=== PATIENT | male | born 1940 | race Caucasian/White ===

== ENCOUNTER 2017-07-22 01:51 | Inpatient (IN) | payer MEDICARE ==
[2017-07-22 02:51] LABS: ALT (SGPT) 21 U/L (8-55); AST (SGOT) 25 U/L (5-34); Albumin 3.7 g/dL (3.4-4.8); Alkaline Phosphatase 107 U/L (40-150); Anion Gap 14 mmol/L (10-20); BUN (Urea Nitrogen) 65 mg/dL (8.4-25.7); Bilirubin, Total 0.8 mg/dL (0.2-1.2); CK (CPK) 35 U/L (30-200); Calc. Creatinine Clearance 0 mL/min (70-130); Carbon Dioxide 22 mmol/L (23-31); Chloride 103 mmol/L (98-107); Estimated GFR-MDRD 16; Globulin 2.1 g/dL (2.4-3.5); Hemoglobin 8.5 g/dL (14.0-18.0); Lipase 12 U/L (8-78); Mean Corpuscular Hemoglobin 30.9 pg (27.0-31.0); Mean Corpuscular Volume 96.5 fl (80.0-94.0); Mean Platelet Volume 9.9 fL (7.4-10.4); Platelet Count 200 thou/uL (130-400); Potassium 5.4 mmol/L (3.5-5.1); Protein, Total 5.8 g/dL (5.8-8.1); RBC Distribution Width 21.1 % (11.5-14.5); Red Blood Cell (RBC) Count 2.75 mill/uL (4.70-6.10); Sodium 134 mmol/L (136-145); White Blood Cell (WBC) Count 7.7 thou/uL (4.8-10.8)
[2017-07-22 02:55] LABS: Glucose 59 mg/dL (83-110); PTT 58.7 SEC (22.9-36.1); Prothrombin Time 22.9 SEC (12.0-14.7); Troponin I 0.274 ng/mL (< 0.028)
[2017-07-22 03:17] LABS: Eosinophils 5 % (0-10); Lymphocytes 9 % (21-51); MDiff Complete? YES; Monocytes 8 % (0-10); Neutrophil 78 % (42-75)
[2017-07-22] MEDS ORDERED: Furosemide 40 MG/4 ML VIAL ONE (04:11)
[2017-07-22] MEDS ORDERED: Dextrose 50% Abboject 50 ML SYRINGE ONE ×2 (04:27→09:28)
[2017-07-22] MEDS ORDERED: Ondansetron HCl/PF 4 MG/2 ML Vial IVP PRN (05:47)
[2017-07-22] MEDS ORDERED: Ondansetron ODT 4 MG TAB SL PRN (05:47)
[2017-07-22] MEDS ORDERED: Furosemide 40 MG/4 ML VIAL SLOW IVP SCH (06:00)
[2017-07-22 06:51] LABS: Troponin I 0.257 ng/mL (< 0.028)
[2017-07-22] MEDS ORDERED: ALPRAZolam 0.25 MG TAB PO PRN (08:37)
[2017-07-22] MEDS ORDERED: Epoetin 40,000 UNITS/ML VIAL SC SCH (08:45)
[2017-07-22] MEDS ORDERED: Bisacodyl 5 MG TAB PO PRN (08:45)
[2017-07-22] MEDS ORDERED: Ondansetron ODT 4 MG TAB PO PRN (08:45)
[2017-07-22] MEDS ORDERED: Acetaminophen 650 MG Suppository PR PRN (08:45)
--- NOTE | 2017-07-22 08:49 | RAD ---
CHEST 1 VIEW: HISTORY: Chest pain. COMPARISON: Chest 1 view 06/22/16. FINDINGS: Heart size is enlarged. Multiple median sternotomy wires. Small left effusion. Mild pulmonary venous congestion. IMPRESSION: Small effusion and mild pulmonary venous congestion and cardiomegaly. POS: TPC
[2017-07-22 08:55] LABS: Troponin I 0.244 ng/mL (< 0.028)
[2017-07-22] MEDS ORDERED: FLU VACC TS2017-18 (>65YR) 0.5 ML SYRINGE IM ONE (09:00)
[2017-07-22] MEDS ORDERED: Aspirin 325 MG TAB PO SCH (09:00)
[2017-07-22] MEDS ORDERED: Non-Formulary Item 1 EACH (Potassium Chloride [Potassium Chloride] 20 MEQ) PO SCH (09:00)
[2017-07-22] MEDS ORDERED: Dextrose 5% in Water 1,000 ML IV PRN (09:45)
[2017-07-22] MEDS ORDERED: Dextrose 50% Abboject 50 ML SYRINGE SLOW IVP PRN (09:45)
[2017-07-22] MEDS ORDERED: Dextrose 50% Abboject 50 ML SYRINGE SLOW IVP SCH (09:45)
[2017-07-22] MEDS ORDERED: HumaLOG 300 UNITS/3 ML VIAL SC PRN (09:45)
--- NOTE | 2017-07-22 10:11 | HP ---
PRIMARY CARE PHYSICIAN: Out of town. CHIEF COMPLAINT: Shortness of breath, hypoxia and hypoglycemia. HISTORY OF PRESENT ILLNESS: This is a 77-year-old white male with a known history of mixed diastolic and systolic congestive heart failure. He is a little confused this morning and has a hard time giv ing a clear history. He does report worsening shortness of breath, unknown period of time and then r eportedly had severe worsening shortness of breath at home yesterday and was unable to get up or kalpana d or walk, felt very shaky and anxious as well. EMS was called and he was found to have a blood suga r in the 30s, he was given an amp of D50 and then transported to the hospital. He may have reported chest pain at some point to the EMS, he has not had any chest pain in the hospital. The patient was moved up to a room last night. This morning when I evaluated him he was having significant nausea wh ich he says he has about 3 times per week when he wakes up that resolves spontaneously after some dry heaves. He also is a little bit confused, he had a hard time getting his words out. He was also br eathless upon speaking, able to give 3-4 word sentences at a time on 2 liters of oxygen. The patient has not noticed any severe worsening of lower extremity edema and just a little bit recently, he sta ely he has been taking his medicines as prescribed. He currently follows with a side gluer, Dr. Jagdish eldridge in [place], he was previously seen by Dr. Obregon here. The patient denies any other severe sign ificant symptoms recently. States that he just felt confused upon waking this morning and he was not confused yesterday. PAST MEDICAL HISTORY: 1. Coronary artery disease with history of coronary artery bypass grafting. 2. Hypertension. 3. Dyslipidemia. 4. Mixed systolic and diastolic congestive heart failure. 5. Diabetes mellitus type 2, insulin-dependent. 6. History of myelofibrosis. 7. Chronic kidney disease stage 4. 8. Paroxysmal atrial fibrillation on Coumadin. 9. Morbid obesity. 10. Gastroesophageal reflux disease. 11. Benign enlargement of prostate. PAST SURGICAL HISTORY: CABG. FAMILY HISTORY: Diabetes and hypertension in multiple family members and father had congestive heart failure. SOCIAL HISTORY: The patient is and lives in the [place] area. He is a retired school teache r. Denies tobacco, alcohol, or illicit drug use. PSYCHIATRIC: Notable for anxiety and depression. ALLERGIES: Intolerant to STATINS. CURRENT MEDICATIONS: 1. Furosemide 40 mg twice a day. 2. Levemir 40 units at night. 3. Regular insulin sliding scale with meals. 4. Alprazolam 0.25 mg twice a day as needed for anxiety. 5. Aspirin 81 mg daily. 6. Vitamin D3 1000 units twice a day. 7. Cymbalta 60 mg daily. 8. Procrit 40,000 units every 7 days subcu. 9. Fish oil 1000 mg daily. 10. Hydralazine 100 mg 3 times a day. 11. Imdur ER 30 mg twice a day. 12. Labetalol 200 mg twice a day. 13. Mirtazapine 15 mg at night. 14. Potassium chloride 20 mEq twice a day. 15. Ranexa 500 mg twice a day. 16. Warfarin 7.5 mg daily. REVIEW OF SYSTEMS: CONSTITUTIONAL: No fevers, no chills. He has had worsening generalized weakness over the last day. EYES: No double vision or blurred vision. ENT: He has some chronic congestion and postnasal drip. No sore throat. CARDIOVASCULAR: No chest pain, no palpitations or racing heart. NEUROLOGIC: See HPI. He does have a cough in the morning when he has to cough up stuff that drains in his throat overnight, otherwise no significant cough, just dyspnea on exertion. He also has chron ic orthopnea that may have been worsened over the last 3 nights, again he is a poor historian. GASTROINTESTINAL: No abdominal pain. He has nausea as per HPI. No vomiting, no diarrhea or constip ation. GENITOURINARY: No dysuria or hematuria. MUSCULOSKELETAL: He does have chronic muscle aches in all his extremities and bilateral hip pain katherine t makes it hard for him ambulate long distances. SKIN: No rashes or other lesions noted. NEUROLOGIC: No numbness, tingling or focal weakness. PHYSICAL EXAMINATION: VITAL SIGNS: Blood pressure 108/61, temperature 97.5, pulse 62, respirations 24, O2 sat 98% on 2 lit ers, dropped to 94% on room air at rest. GENERAL: This is a well-developed, well-nourished white male in mild distress from nausea. HEENT: Pupils equal, round, and reactive to light. Extraocular movements intact. Oropharynx clear without lesions, erythema or exudate. NECK: Supple, no lymphadenopathy, no thyroid nodules or enlargement. He has moderate JVD. HEART: Irregularly irregular rhythm, no tachycardia, no significant murmurs. LUNGS: Mild bibasilar crackles, good air movement throughout. Mild increased work of breathing, jameson ecially when he tries to talk. ABDOMEN: Soft, nontender to palpation, normoactive bowel sounds, no hepatosplenomegaly or other mass es. EXTREMITIES: No clubbing or cyanosis. He has trace lower extremity edema. SKIN: No rashes or other significant lesions. NEUROLOGIC: He has intact strength and reflexes in all extremities and no facial droop. PSYCHIATRIC: The patient is alert. He is oriented to person, place, and situation, but he has some difficult time concentrating and remembering details from his admission. LABORATORY: CMP notable for a sodium of 134, potassium 5.4, carbon dioxide 22, BUN of 65, which is e levated compared to baseline and creatinine of 3.64, which is elevated above his typical around 3, gl ucose was 59 earlier this morning, now up to 150, the remainder of the complete metabolic panel was n ormal. Brain natriuretic peptide is 829, which is significant, it is double what it was last year du ring his exacerbation when he was admitted. CK-MB normal. Troponin is 0.274 initially with 2 unchan ged repeats. X-ray, I did review the x-ray done in the emergency room along with the radiologist's r eport, it does show small effusion, mild pulmonary venous congestion with cardiomegaly as well as venecia e median sternotomy wires from his CABG. ASSESSMENT AND PLAN: 1. Hypoglycemia, resolved, possibly secondary to poor p.o. intake with the patient's worsening short ness of breath and difficulty moving around. We will monitor closely and put patient back on his adalberto e Levemir, but hold his with meal insulins and will just cover him with a mild sliding scale should h e become hyperglycemic. 2. Exacerbation of systolic and diastolic congestive heart failure. The patient's brain natriuretic peptide is double what it was previously and he is having symptomatic orthopnea and dyspnea on exert ion. We will check his O2 sats with ambulation when we get him up with physical therapy later. We w ill switch him to IV Lasix and will have Cardiology come evaluate him, Dr. Bolton has been consulted. 3. Acute on chronic stage 4 kidney disease with mild hyperkalemia. We will hold potassium supplemen ts. We will have Dr. Martins, the patient's tufter hand, come and evaluate him. 4. Gastrointestinal prophylaxis. Put the patient on Pepcid twice a day. 5. Deep venous thrombosis prophylaxis. We will continue patient's Coumadin for his atrial fibrillat ion and will put on SCDs and IAN while in bed. 6. Atrial fibrillation, currently well controlled. Resume blood pressure and heart rate medications as well as his Coumadin. 7. CODE STATUS: I did discuss with the patient, he states he would like to be getting too aggressiv e if he is not going to have a good quality of life, but would like at least initial attempted CPR an d ventilatory support, so he is a FULL CODE. Should he be medically incapacitated, his aRdha Ram, would be his medical power of immigration attorney.
--- NOTE | 2017-07-22 11:45 | CON ---
DATE OF CONSULTATION: 07/22/2017 PRIMARY DEPARTMENT SALES MANAGER: Dr. Almaraz in [place]. HISTORY OF PRESENT ILLNESS: Mr. Liu is a very pleasant 77-year-old white gentleman who comes to [facility] for shortness of breath. He was at home and seemed a little confused and worsening short ness of breath than his baseline. EMS was called and they found him to have a blood sugar in the 30s . He was given an amp of D50 and taken to the hospital. He has not had any chest pain, it is mostly just shortness of breath with exertion and more recently at rest, that is why EMS was called. He forbes s been nauseated as well in the recent few days with dry heaves. Nothing that he ate that made him s ick. He has been followed by Dr. Martins in the past for renal dysfunction and has had a very hard time diuresing him. Currently, he is pain free. PAST MEDICAL HISTORY: 1. Coronary artery disease, status post bypass grafting. 2. Chronic angina. 3. Hypertension. 4. Hyperlipidemia. 5. Systolic heart failure, most recent echo shows just a mildly diminished LV function with very dif ficult windows to see a good endocardial definition to assess an accurate LV function. 6. Type 2 diabetes. 7. Myelofibrosis. 8. Chronic kidney disease stage 4. 9. Paroxysmal atrial fibrillation. 10. Chronic anticoagulation on Coumadin. 11. Morbid obesity. 12. Gastroesophageal reflux disease. 13. BPH. PAST SURGICAL HISTORY: 1. CABG. 2. Recent heart catheterization just 2 years ago that showed right coronary artery occluded with a r ight graft occluded, RIVAS to the LAD was patent with a jump graft to a diagonal, a graft to an OM whi ch was occluded, the graft is open and it jumps to a second OM branch which has at a 50-60% lesion be fore that branch and a very, very small [place] coronary. FAMILY HISTORY: Noncontributory. SOCIAL HISTORY: Lives in [place], retired school crossing guard. No alcohol, tobacco or drugs. ALLERGIES: STATIN DRUGS. OUTPATIENT MEDICATIONS: 1. Lasix 40 mg twice a day. 2. Levemir. 3. Regular insulin. 4. Alprazolam. 5. Aspirin 81 daily. 6. Vitamin D3. 7. Cymbalta. 8. Procrit. 9. Fish oil. 10. Hydralazine 100 mg t.i.d. 11. Imdur 30 mg daily. 12. Labetalol 200 mg b.i.d. 13. Mirtazapine. 14. Potassium chloride 20 mEq b.i.d. 15. Ranexa 500 mg b.i.d. 16. Warfarin. REVIEW OF SYSTEMS: Twelve point review of systems normal unless otherwise stated in the history of p resent illness. PHYSICAL EXAMINATION: VITAL SIGNS: Temperature 97.5, pulse 62, respiration rate 22, satting 94% on room air. Blood pressu re 108/61. GENERAL: Awake, alert, oriented x3, in no distress. HEENT: Normocephalic, atraumatic. NECK: Supple. LUNGS: Lungs have mild crackles at the bilateral bases. CARDIOVASCULAR: S1, S2, no S3, no murmurs. ABDOMEN: Soft, positive bowel sounds. EXTREMITIES: No edema. SKIN: The skin is warm and dry. LABORATORY WORK: Reviewed. Sodium 134, potassium is 5.4, elevated BUN 65, creatinine 3.6, GFR 16, g lucose was 59 on arrival, repeat 150 after sugar was given. Troponin I was 0.27, 0.25, 0.24. BNP wa s 829, albumin of 3.7. Coags: INR of 2.0. Hematology: Hemoglobin of 8.5, hematocrit 26, white cou nt 200. EKG was reviewed. He currently is in atrial fibrillation with rate control. Chest x-ray; small effusion with mild pulmonary edema. Cardiomegaly. ASSESSMENT AND PLAN: 1. Acute on chronic systolic and diastolic heart failure. 2. Acute on chronic kidney disease, stage 4. 3. Hypoglycemia, resolved. PLAN: 1. I agree with trying to get fluid out. He has not responded well to Lasix in the past for any diu resis. Dr. Martins already evaluated him and is planning on doing dialysis later today. I agree with adela prasad to get his fluid out for this. 2. We will get an echocardiogram to assess LV function now. 3. Further recommendations per results of echocardiogram Thank you for letting us participate in the care of your patient. We will follow.
--- NOTE | 2017-07-22 12:21 | CON ---
DATE OF CONSULTATION: 07/22/2017 NEPHROLOGY CONSULTATION REASON FOR CONSULTATION: Hyperkalemia and elevated creatinine. HISTORY OF PRESENT ILLNESS: This is a very pleasant 77-year-old gentleman who presented to the [facility] with increasing shortness of breath. The patient at this time denies any nausea, vomiting or ruth st pain, but is very weak and can give no further detailed history. PAST MEDICAL HISTORY: Significant for coronary artery disease, hypertension, CKD, but was admitted f or history of CABG. HOME MEDICATIONS: Reviewed. ALLERGIES: Reviewed. REVIEW OF SYSTEMS: Unobtainable, the patient is very somnolent. PHYSICAL EXAMINATION: GENERAL: The patient is somnolent. VITAL SIGNS: Afebrile, pulse 60, breathing at 16, blood pressure 108/61. HEAD/NECK: Normocephalic. Atraumatic. EYES: EOMI. No deformity. EARS: Clear. No ulcers. NOSE: Intact. No lesions. MOUTH: Clear. No discharge. THROAT: Clear. No exudate. LUNGS: Clear. No crackles. CARDIAC: S1, S2. No rub. ABDOMEN: Benign. BS+. GENITALIA/RECTUM: Esteves absent. BACK/EXTREMITIES: Edema 0+ Ulcer- NEUROLOGICAL: Very somnolent. SKIN: Rash- Bruise- LYMPHATICS: Edema- Ulcer- LABORATORY DATA: Hemoglobin 8.5, potassium is 5.4, creatinine 3.6. ASSESSMENT AND PLAN: 1. Acute kidney injury with progressive chronic kidney disease with altered mental status, uremia an d hyperkalemia. We will plan dialysis. 2. Hyperkalemia, plan dialysis. 3. Anemia. We will give transfusion and Epogen. 4. Medications based on glomerular filtration rate are appropriate. Risks versus benefits of dialys is were discussed and the patient agreed.
[2017-07-22] MEDS: Aspirin 81 mg Enteric Coated Tablet PO SCH (12:31)
[2017-07-22] MEDS: Docusate 100 MG CAP PO SCH ×2 (12:31→20:36)
[2017-07-22] MEDS: Famotidine 20 MG TAB PO SCH (12:32)
[2017-07-22] MEDS: Fish Oil 1,000 MG CAP PO SCH (12:32)
[2017-07-22] MEDS: Labetalol 100 MG TAB PO SCH ×2 (12:32→20:36)
[2017-07-22] MEDS: hydrALAZINE 25 MG TAB PO SCH ×3 (12:32→20:36)
[2017-07-22] MEDS: DULoxetine 60 MG CAP PO SCH (12:32)
--- NOTE | 2017-07-22 13:55 | ULT ---
ULTRASOUND BILATERAL UPPER EXTREMITY VENOUS MAPPING: DATE: 07/22/17. HISTORY: Stage IV chronic kidney disease in a 77-year-old male for arteriovenous dialysis access fistula plann ing surgery. FINDINGS: RIGHT: Brachial artery: 4.5 mm. Radial artery: 2 mm. Ulnar artery: 1 mm. CEPHALIC VEIN: Proximal arm 3.5 mm Mid arm 3 mm Distal arm 3 mm Antecubital 4 mm Proximal forearm 2 mm Mid forearm 2.5 mm Distal forearm 0.5 mm BASILIC VEIN: Proximal arm 4 mm Mid arm 4.5 mm Distal arm 3.5 mm Antecubital 2.5 mm Proximal forearm 0.5 mm Mid forearm 0.5 mm Distal forearm 0.5 mm LEFT: Brachial artery: 5 mm Radial artery: 1.5 mm Ulnar artery: 1.5 mm CEPHALIC VEIN: Proximal arm 3 mm Mid arm 1.5 mm Distal arm 1.5 mm Antecubital 1.5 mm Proximal forearm 3.5 mm Mid forearm 1.5 mm Distal forearm 1 mm BASILIC VEIN: Proximal arm 4 mm Mid arm 3.5 mm Distal arm 3.5 mm Antecubital 2 mm Proximal forearm 0.5 mm Mid forearm 0.5 mm Distal forearm 1 mm IMPRESSION: The bilateral basilic veins of the arms, and the cephalic vein of the right arm, are consistently gre ater than 3 mm in caliber. POS: SURESH
[2017-07-22 15:21] LABS: HBSAg Index 0.18 S/CO (0-0.99); Hep B Surf Ag Non-Reactive S/CO (NonReactive)
[2017-07-22] MEDS: Warfarin Sodium 5 MG TAB PO SCH (17:27)
[2017-07-22] MEDS: Warfarin Sodium 2 MG TAB PO SCH (17:27)
[2017-07-22] MEDS: Mirtazapine 15 MG Soltab PO SCH (20:37)
[2017-07-22] MEDS ORDERED: Insulin Detemir 100 UNITS/ML 40 UNITS in Pre-Filled Syringe 1 EACH SC SCH (21:00)
[2017-07-22] MEDS ORDERED: Insulin Detemir 100 UNITS/ML 20 UNITS in Admixture Fee 1 EACH SC SCH (21:00)
[2017-07-23 05:41] LABS: Anion Gap 14 mmol/L (10-20); BUN (Urea Nitrogen) 40 mg/dL (8.4-25.7); Calc. Creatinine Clearance 23 mL/min (70-130); Calcium 8.9 mg/dL (7.8-10.44); Carbon Dioxide 26 mmol/L (23-31); Chloride 101 mmol/L (98-107); Estimated GFR-MDRD 21; Glucose 60 mg/dL (83-110); Potassium 3.7 mmol/L (3.5-5.1); Sodium 137 mmol/L (136-145)
[2017-07-23 06:15] LABS: Band 3 % (5-11); Elliptocytes SLIGHT = 2-5 cells (100X) (0-1/hpf); Hemoglobin 8.5 g/dL (14.0-18.0); Lymphocytes 19 % (21-51); MDiff Complete? YES; Mean Corpuscular HGB CONC 32.1 g/dL (32.0-36.0); Mean Corpuscular Hemoglobin 31.1 pg (27.0-31.0); Mean Platelet Volume 9.9 fL (7.4-10.4); Monocytes 16 % (0-10); Neutrophil 61 % (42-75); Platelet Count 185 thou/uL (130-400); Polychromasia SLIGHT = 2-3 cells (100X) (0-2/hpf); RBC Distribution Width 21.2 % (11.5-14.5); Reactive Lymphocytes 1 % (0-10); Red Blood Cell (RBC) Count 2.74 mill/uL (4.70-6.10); White Blood Cell (WBC) Count 6.6 thou/uL (4.8-10.8)
--- NOTE | 2017-07-23 09:07 | CON ---
DATE OF CONSULTATION: 07/23/2017 REASON FOR CONSULTATION: Need for dialysis access. HISTORY: Mr. Liu is a 77-year-old man who presented to the hospital with shortness of breath, hyp oxia and hypoglycemia. He has chronic renal insufficiency and this has been steadily worsening. At this point, his database administration project manager feels that he is in fluid overload and he is also hyperkalemic, so place ment of a femoral dialysis catheter was required for immediate institution of dialysis. The patient is felt to need chronic dialysis so for long-term dialysis a tunneled hemodialysis catheter and fistu la were recommended as well. The patient has had 2 rounds of dialysis, which he has tolerated well a nd feels like he is breathing a little better. He is no longer short of breath. PAST MEDICAL HISTORY: Coronary artery disease status post bypass, hypertension, hyperlipidemia, mixe d systolic and diastolic congestive heart failure, diabetes, myelofibrosis, chronic kidney disease, n ow progressed to dialysis, paroxysmal atrial fibrillation, chronically anticoagulated. GERD, BPH and obesity. PAST SURGICAL HISTORY: Multi-vessel bypass. FAMILY HISTORY: Heart failure, diabetes and hypertension. SOCIAL HISTORY: He does not smoke, drink or use illicit drugs. He lives at home with his . ALLERGIES: STATIN MEDICATIONS. OUTPATIENT MEDICATIONS: Include Lasix, Levemir insulin, alprazolam, aspirin, vitamin D, Cymbalta, Pr ocrit, fish oil, hydralazine, Imdur, labetalol, mirtazapine, potassium, Ranexa and Coumadin with an I NR of 2 at admission. REVIEW OF SYSTEMS: Ten system review of systems is negative except per HPI. The patient is still sl ightly short of breath, but much better than at the time of his admission. He denies any chest pain. PHYSICAL EXAMINATION: VITAL SIGNS: The patient has been afebrile since his admission. Heart rate 66, respirations 19, 92% saturated on 1 liter nasal cannula, blood pressure 165/68. GENERAL: Reveals a pleasant gentleman in no acute distress. He does still get slightly short of mango ath with long conversation, but this is not noticeable during casual conversation. HEENT: Unremarkable. NECK: Supple, without lymphadenopathy or thyroid nodules. HEART: Regular in its rate and rhythm. He does have a slight systolic murmur. LUNGS: Clear to auscultation anteriorly with occasional scattered crackles. ABDOMEN: Soft, nontender, nondistended. EXTREMITIES: Warm and well perfused. He does have bilateral lower extremity edema which is moderate . A right femoral dialysis catheter is in place. He is right handed. He has a moderate sized cepha lic vein to palpation on the right, but this seems to become very small at the level of the wrist. Jenn castle has a good antecubital vein on the right and equal filling on Jhon's testing. On the left, he has equal filling on Jhon's testing and a moderate sized cephalic vein in the forearm and good size ant ecubital vein. He does have signs of previous IV at the antecubital location. NEUROLOGIC: No focal deficits. PSYCHIATRIC: Alert, oriented and appropriate. LABORATORY DATA: White count is normal at 6.6, hematocrit 26, which is chronically low, platelets 18 5. INR at admission was 2, BUN and creatinine are 40 and 3, potassium has come down to the normal ra nge. Glucose has ranged from 60 to 98. Vein mapping is pending. ASSESSMENT: End-stage renal failure on dialysis and tolerating this well. He will require a tunnele d hemodialysis catheter for outpatient placement for dialysis as well as a fistula for long-term acce ss. INR today is pending, but if it is not terribly high this should be able to be done with accepta ble bleeding risk. He would need to be fully anticoagulated during the fistula surgery anyway. The procedure of a tunneled hemodialysis catheter and fistula placement were discussed in detail with the patient. Inherent risks were also discussed. These include but are not limited to bleeding, infect ion, risks of anesthesia, hemothorax, pneumothorax, need for other procedures, need for transposition , failure of the fistula to develop or need for additional procedures to get the fistula to develop a nd arterial steal which can lead to ischemic damage to the hands. He understands and accepts these r isks and wishes to proceed. He does understand that his bleeding risk is slightly higher because of his chronic Coumadin usage.
[2017-07-23] MEDS ORDERED: Heparin 10,000 UNITS/ 10 ML VIAL ONE ×2 (10:00→17:21)
[2017-07-23 10:05] LABS: Hemoglobin 8.1 g/dL (14.0-18.0); Mean Corpuscular HGB CONC 32.6 g/dL (32.0-36.0); Mean Corpuscular Hemoglobin 31.6 pg (27.0-31.0); Mean Corpuscular Volume 97.1 fl (80.0-94.0); Mean Platelet Volume 9.3 fL (7.4-10.4); Platelet Count 158 thou/uL (130-400); RBC Distribution Width 21.2 % (11.5-14.5); Red Blood Cell (RBC) Count 2.56 mill/uL (4.70-6.10); White Blood Cell (WBC) Count 5.3 thou/uL (4.8-10.8)
--- NOTE | 2017-07-23 10:06 | PRG ---
DATE OF SERVICE: 07/23/2017 SUBJECTIVE: This is a 77-year-old gentleman being seen for end-stage renal disease. The patient den ies any nausea, vomiting or chest pain. PHYSICAL EXAMINATION: GENERAL: Patient is awake, alert. VITAL SIGNS: Afebrile, pulse 60, breathing 16, blood pressure 165/60. OBJECTIVE: See above. Awake, alert, in no acute distress. GENERAL APPEARANCE AND MENTAL STATUS: Fair. HEAD/NECK: Normocephalic. Atraumatic. EYES: EOMI. No deformity. EARS: Clear. No ulcers. NOSE: Intact. No lesions. MOUTH: Clear. No discharge. THROAT: Clear. No exudate. LUNGS: Clear. No crackles. CARDIAC: S1, S2. No rub. ABDOMEN: Benign. BS+. GENITALIA/RECTUM: Esteves absent. BACK/EXTREMITIES: Edema 0+ Ulcer- NEUROLOGICAL: Alert and motor intact. SKIN: Rash- Bruise- LYMPHATICS: Edema- Ulcer- LABORATORY: Hemoglobin 8.5, potassium 3.6. ASSESSMENT AND RECOMMENDATIONS: 1. Stage 6 chronic kidney disease. We will plan hemodialysis. 2. Hypertension, stable. 3. Anemia, stable. 4. Medications based on GFR are appropriate.
[2017-07-23 10:17] LABS: INR-International Normal Ratio 2.1; PTT 49.1 SEC (22.9-36.1); Prothrombin Time 24.7 SEC (12.0-14.7)
[2017-07-23 10:30] LABS: Anion Gap 8 mmol/L (10-20); BUN (Urea Nitrogen) 19 mg/dL (8.4-25.7); Calc. Creatinine Clearance 44 mL/min (70-130); Calcium 8.7 mg/dL (7.8-10.44); Carbon Dioxide 32 mmol/L (23-31); Chloride 102 mmol/L (98-107); Estimated GFR-MDRD 42; Glucose 92 mg/dL (83-110); Potassium 3.1 mmol/L (3.5-5.1); Sodium 139 mmol/L (136-145)
[2017-07-23 11:06] LABS: Band 4 % (5-11); Bite Cells SLIGHT = 2-5 cells (100X) (0-1/hpf); Eosinophils 2 % (0-10); Lymphocytes 14 % (21-51); MDiff Complete? YES; Monocytes 14 % (0-10); Neutrophil 66 % (42-75); Ovalocytes MODERATE= 6-15 cells (100X) (0-1/hpf); Polychromasia SLIGHT = 2-3 cells (100X) (0-2/hpf); Schistocytes SLIGHT = 2-5 cells (100X) (0-1/hpf); Tear Drops SLIGHT = 2-5 cells (100X) (0-1/hpf)
[2017-07-23] MEDS ORDERED: Heparin 1,000 UNITS/ML VIAL ONE (11:11)
[2017-07-23] MEDS ORDERED: Tuberculin PPD 0.1 ML VIAL I-DERMAL SCH (11:15)
[2017-07-23] MEDS: DULoxetine 60 MG CAP PO SCH (11:39)
[2017-07-23] MEDS: Labetalol 100 MG TAB PO SCH ×2 (11:40→21:53)
[2017-07-23] MEDS: Fish Oil 1,000 MG CAP PO SCH (11:40)
[2017-07-23] MEDS: hydrALAZINE 25 MG TAB PO SCH ×3 (11:41→21:52)
[2017-07-23] MEDS: Aspirin 81 mg Enteric Coated Tablet PO SCH (11:43)
[2017-07-23] MEDS: Famotidine 20 MG TAB PO SCH (11:43)
[2017-07-23] MEDS: Docusate 100 MG CAP PO SCH ×2 (11:51→21:53)
--- NOTE | 2017-07-23 12:13 | PDOC.PN ---
- Subjective Encounter Start Date: 07/23/17 Encounter Start Time: 12:12 Patient seen at bedside. No new complaints. - Objective Resuscitation Status: Resuscitation Status FULL:Full Resuscitation MAR Reviewed: Yes Vital Signs & Weight: Vital Signs (12 hours) Temp Pulse Resp BP Pulse Ox 07/23/17 11:41 66 07/23/17 11:40 66 07/23/17 02:45 98.4 F 66 19 165/68 H 92 L Weight Weight 173 lb 11.2 oz I&O: 07/22/17 07/23/17 07/24/17 06:59 06:59 06:59 Intake Total 490 Output Total 550 Balance -60 Result Diagrams: 07/23/17 09:49 07/23/17 09:49 Additional Labs: Accuchecks 07/23/17 07/23/17 07/23/17 09:35 08:00 05:44 POC Glucose 96 98 61 L 07/23/17 07/22/17 07/22/17 01:29 19:37 17:31 POC Glucose 92 86 89 07/22/17 07/22/17 07/22/17 16:45 10:22 09:28 POC Glucose 48 L* 94 35 L* 07/22/17 04:27 POC Glucose 49 L* Phys Exam - Physical Examination Constitutional: NAD Neck: no JVD scattered rales Cardiovascular: RRR Gastrointestinal: soft Musculoskeletal: pulses present Neurological: moves all 4 limbs Psychiatric: A&O x 3 Dx/Plan (1) ESRD (end stage renal disease) Code(s): N18.6 - END STAGE RENAL DISEASE Status: Acute (2) Hyperlipidemia Code(s): E78.5 - HYPERLIPIDEMIA, UNSPECIFIED Status: Chronic (3) Diabetes Code(s): E11.9 - TYPE 2 DIABETES MELLITUS WITHOUT COMPLICATIONS Status: Chronic (4) Hypertension Code(s): I10 - ESSENTIAL (PRIMARY) HYPERTENSION Status: Chronic - Plan cont current plan of care, PT/OT, health and social care teacher * Continue with current management. * For AV Fistula today * HD per nephrology *
[2017-07-23 12:43] LABS: HBSAg Index 0.21 S/CO (0-0.99); Hep B Core Total Ab Non-Reactive (NonReactive); Hep B Core Total Index 0.02 S/CO (0-0.79); Hep B Surf AB Non-Reactive (NonReactive); Hep B Surf Ag Non-Reactive S/CO (NonReactive); Hep C IgG Ab Non-Reactive (NonReactive); Hep C Index 0.07 S/CO (0-0.79)
--- NOTE | 2017-07-23 13:37 | PDOC.CTH ---
Cardiology Progress Note - Subjective He is doing well. he has had dialysis twice now and tolerated it well. SOB is still there but slightly improved. - Objective Vital Signs Temp Pulse Resp BP Pulse Ox 07/23/17 11:41 66 07/23/17 11:40 66 07/23/17 02:45 98.4 F 66 19 165/68 H 92 L Weight 173 lb 11.2 oz 07/22/17 07/23/17 07/24/17 06:59 06:59 06:59 Intake Total 490 Output Total 550 Balance -60 - Physical Examination General/Neuro: alert & oriented x3, NAD Neck: no JVD present Lungs: CTA, unlabored respirations Heart: RRR Abdomen: NT/ND Extremities: + edema B (trace) - Telemetry Telemetry Rhythm: NSR - Labs Result Diagrams: 07/23/17 09:49 07/23/17 09:49 Troponin/CKMB CK-MB (CK-2) 2.0 ng/mL (0-6.6) 07/22/17 02:26 Troponin I 0.244 ng/mL (< 0.028) H 07/22/17 08:23 - Assessment/Plan 1. ESRD on HD new onset 2. NSTEMI, demand ischemia most likely 3. Acute on chronic systolic and diastolic dysfunction. PLAN: - CV stable. - Pending echo for further recs .
[2017-07-23] MEDS ORDERED: Fentanyl 250 MCG/5 ML VIAL ONE (13:48)
[2017-07-23] MEDS ORDERED: Heparin 5,000 UNITS/ML VIAL ONE (14:00)
[2017-07-23] MEDS ORDERED: Bupivacaine/Epinephrine 0.25% 30 ML VIAL ONE (14:00)
[2017-07-23] MEDS ORDERED: Heparin 10,000 UNITS/1 ML VIAL ONE (14:00)
[2017-07-23] MEDS ORDERED: Lidocaine 1% (PF) 30 ML VIAL ONE (14:00)
[2017-07-23] MEDS ORDERED: Sodium Chloride 0.9% 20 ML ONE (14:00)
[2017-07-23] MEDS ORDERED: CEFAZOLIN/Water 2 GM/20 ML SYRINGE ONE (15:12)
[2017-07-23] MEDS ORDERED: Morphine Sulfate 2 MG/ML SYRINGE SLOW IVP PRN (16:50)
[2017-07-23] MEDS ORDERED: PROPOFOL 200 MG/20 ML VIAL ONE (17:21)
[2017-07-23] MEDS ORDERED: Glycopyrrolate 0.2 MG/ML 5 ML SYRINGE ONE (17:21)
[2017-07-23] MEDS ORDERED: Ondansetron HCl/PF 4 MG/2 ML Vial ONE (17:21)
[2017-07-23] MEDS ORDERED: Fentanyl 100 MCG/2 ML VIAL ONE (18:05)
--- NOTE | 2017-07-23 19:14 | RAD ---
UPRIGHT PORTABLE CHEST ONE VIEW: 07/23/17 HISTORY: 77-year-old male with history of line placement. COMPARISON: 07/22/17. Postop midline sternotomy. Prominent cardiomegaly with mild vascular congestion. Right dual lumen freddie ous access catheter in place. No pleural effusion or pneumothorax. IMPRESSION: Stable cardiomegaly and bilateral vascular congestion. Right dual lumen venous access catheter in zurdo ce without pneumothorax or pleural effusion. POS: INES
[2017-07-23] MEDS: Warfarin Sodium 2 MG TAB PO SCH (19:50)
[2017-07-23] MEDS: Warfarin Sodium 5 MG TAB PO SCH (19:50)
[2017-07-23] MEDS: Mirtazapine 15 MG Soltab PO SCH (21:54)
[2017-07-24] MEDS: Labetalol 100 MG TAB PO SCH ×2 (09:25→20:40)
[2017-07-24] MEDS: hydrALAZINE 25 MG TAB PO SCH ×3 (09:25→20:40)
[2017-07-24] MEDS: Docusate 100 MG CAP PO SCH ×2 (09:26→20:40)
[2017-07-24] MEDS: Fish Oil 1,000 MG CAP PO SCH (09:26)
[2017-07-24] MEDS: DULoxetine 60 MG CAP PO SCH (09:26)
[2017-07-24] MEDS: Famotidine 20 MG TAB PO SCH (09:26)
[2017-07-24] MEDS: Aspirin 81 mg Enteric Coated Tablet PO SCH (09:26)
--- NOTE | 2017-07-24 15:58 | PDOC.PN ---
- Subjective Encounter Start Date: 07/24/17 Encounter Start Time: 15:56 Subjective: feels better but still very weak and tired. -: no chest pain/SOB/cough/fever - Objective Resuscitation Status: Resuscitation Status FULL:Full Resuscitation MAR Reviewed: Yes Vital Signs & Weight: Vital Signs (12 hours) Temp Pulse Resp BP Pulse Ox 07/24/17 15:31 98.2 F 65 18 96 07/24/17 12:00 98.2 F 63 16 136/65 95 07/24/17 07:58 98.0 F 70 20 144/56 H 100 07/24/17 04:00 97.7 F 66 19 164/77 H 100 Weight Weight 174 lb I&O: 07/23/17 07/24/17 07/25/17 06:59 06:59 06:59 Intake Total 490 720 Output Total 550 600 Balance -60 120 Result Diagrams: 07/23/17 09:49 07/23/17 09:49 Additional Labs: Accuchecks 07/24/17 07/24/17 07/24/17 11:43 09:35 08:37 POC Glucose 147 H 83 68 L 07/24/17 07/23/17 07/23/17 03:49 23:53 20:19 POC Glucose 74 88 90 07/23/17 07/23/17 19:10 17:45 POC Glucose 86 97 Laboratory Tests 07/22/17 07/23/17 07/23/17 02:26 04:02 09:49 Creatinine 3.64 H 3.00 H 1.62 H Radiology Reviewed by me: Yes ([id number] Phys Exam - Physical Examination Constitutional: NAD pale and tired looking HEENT: PERRLA, moist MMs, sclera anicteric, oral pharynx no lesions Neck: no nodes, no JVD, supple, full ROM Respiratory: no wheezing, no rales, no rhonchi, clear to auscultation bilateral Cardiovascular: RRR, no significant murmur Gastrointestinal: soft, non-tender, no distention, positive bowel sounds Musculoskeletal: pulses present, edema present (trace) Left Forearm HD fistula Neurological: non-focal, normal sensation, moves all 4 limbs Psychiatric: normal affect, A&O x 3 Skin: no rash Dx/Plan (1) Acute on chronic combined systolic (congestive) and diastolic (congestive) heart failure Code(s): I50.43 - ACUTE ON CHRONIC COMBINED SYSTOLIC AND DIASTOLIC HRT FAIL Status: Acute (2) NSTEMI (non-ST elevated myocardial infarction) Code(s): I21.4 - NON-ST ELEVATION (NSTEMI) MYOCARDIAL INFARCTION Status: Acute (3) ESRD (end stage renal disease) Code(s): N18.6 - END STAGE RENAL DISEASE Status: Chronic Comment: HD initiated this admission (4) Diabetes Code(s): E11.9 - TYPE 2 DIABETES MELLITUS WITHOUT COMPLICATIONS Status: Chronic Qualifiers: Diabetes mellitus type: type 2 Diabetes mellitus complication status: with hyperglycemia (5) Hyperlipidemia Code(s): E78.5 - HYPERLIPIDEMIA, UNSPECIFIED Status: Chronic (6) Hypertension Code(s): I10 - ESSENTIAL (PRIMARY) HYPERTENSION Status: Chronic - Plan PT/OT, social media strategist, out of bed/ambulate, DVT proph w/SCDs fluid removal per HD.tolerating so far .nephrology & cardiology following -: OP HD set up to be done prior to DC -: hemodynamically stable. -: am labs. -: INR therapeutic on coumadin.monitor. * . Review of Systems - Review of Systems Constitutional: weakness, malaise. negative: fever, chills, sweats, other Respiratory: SOB with Excertion. negative: Cough, Dry, Shortness of Breath, Hemoptysis, Pleuritic Pain, Sputum, Wheezing Cardiovascular: edema. negative: chest pain, palpitations, orthopnea, paroxysmal nocturnal dyspnea, light headedness, other Gastrointestinal: negative: Nausea, Vomiting, Abdominal Pain, Diarrhea, Constipation, Melena, Hematochezia, Other Genitourinary: negative: Dysuria, Frequency, Incontinence, Hematuria, Retention , Other Musculoskeletal: negative: Neck Pain, Shoulder Pain, Arm Pain, Back Pain, Hand Pain, Leg Pain, Foot Pain, Other Neurological: negative: Weakness, Numbness, Incoordination, Change in Speech, Confusion, Seizures, Other - Medications/Allergies Allergies/Adverse Reactions: Allergies Allergy/AdvReac Type Severity Reaction Status Date / Time [id number] Reductase Allergy Verified 07/22/17 05:17 Inhibitor Medications: Current Medications Acetaminophen (Tylenol) 650 mg PO Q4H PRN PRN Reason: Headache/Fever or Pain Acetaminophen (Tylenol) 650 mg [place] Q4H PRN PRN Reason: Headache/Fever or Pain Alprazolam (Xanax) 0.25 mg PO BIDPRN PRN PRN Reason: Anxiety Aspirin (Ecotrin) 81 mg PO DAILY [facility] Last Admin: 07/24/17 09:26 Dose: 81 mg Bisacodyl (Dulcolax) 10 mg PO DAILYPRN PRN PRN Reason: Constipation Cholecalciferol (Vitamin D3) 1,000 units PO BID [facility] Last Admin: 07/24/17 09:26 Dose: 1,000 units Dextrose/Water (Dextrose 50%) 25 gm SLOW IVP PRN PRN PRN Reason: Hypoglycemia Last Admin: 07/23/17 13:39 Dose: 25 gm Docusate Sodium (Colace) 100 mg PO BID [facility] Last Admin: 07/24/17 09:26 Dose: 100 mg Duloxetine HCl (Cymbalta) 60 mg PO DAILY [facility] Last Admin: 07/24/17 09:26 Dose: 60 mg Epoetin Kapil (Procrit) 40,000 units SC .[id number] FOR DAY [facility] Famotidine (Pepcid) 20 mg PO DAILY [facility] Last Admin: 07/24/17 09:26 Dose: 20 mg Fish Oil (Fish Oil) 1,000 mg PO DAILY [facility] Last Admin: 07/24/17 09:26 Dose: 1,000 mg Glucagon (Glucagon) 1 mg IM PRN PRN PRN Reason: Hypoglycemia Hydralazine HCl (Apresoline) 100 mg PO TID [facility] Last Admin: 07/24/17 15:33 Dose: 100 mg Dextrose/Water (D5w) 1,000 mls @ 0 mls/hr IV .Q0M PRN; As Directed PRN Reason: Hypoglycemia Insulin Human Lispro (Humalog) 0 units SC .MILD SLIDING SCALE PRN PRN Reason: Mild Correctional Scale Isosorbide Mononitrate (Imdur Er) 30 mg PO BID [facility] Last Admin: 07/24/17 09:26 Dose: 30 mg Labetalol HCl (Normodyne) 200 mg PO BID [facility] Last Admin: 07/24/17 09:25 Dose: 200 mg Mirtazapine (Remeron Soltab) 15 mg PO QPM [facility] Last Admin: 07/23/17 21:54 Dose: Not Given Read Ppd Test Site 0 each PO ONE [facility] Stop: 07/25/17 09:01 Ondansetron HCl (Zofran Odt) 4 mg PO Q6H PRN PRN Reason: Nausea/Vomiting Ondansetron HCl (Zofran) 4 mg IVP Q6H PRN PRN Reason: Nausea/Vomiting Ranolazine (Ranexa) 500 mg PO BID [facility] Last Admin: 07/24/17 09:26 Dose: 500 mg Warfarin Sodium (Coumadin) 5 mg PO 1700 [facility] Last Admin: 07/23/17 19:50 Dose: Not Given Warfarin Sodium (Coumadin) 2 mg PO 1700 [facility] Last Admin: 07/23/17 19:50 Dose: Not Given
[2017-07-24] MEDS: Warfarin Sodium 5 MG TAB PO SCH (18:07)
[2017-07-24] MEDS: Warfarin Sodium 2 MG TAB PO SCH (18:07)
[2017-07-24] MEDS ORDERED: Sodium Chloride 0.9% 10 ML ONE (20:13)
[2017-07-24] MEDS: Acetaminophen 325 MG TAB PO PRN (20:40)
[2017-07-24] MEDS: Mirtazapine 15 MG Soltab PO SCH (20:40)
[2017-07-24] MEDS: Ondansetron HCl/PF 4 MG/2 ML Vial IVP PRN (20:42)
--- NOTE | 2017-07-24 21:22 | PRG ---
DATE OF SERVICE: 07/24/2017 SUBJECTIVE: Patient was seen and examined at bedside and overnight events noted. Patient denies any shortness of breath or chest pain or palpitation. No history of nausea or vomiting or diarrhea or f ever or chills or cramps. OBJECTIVE: GENERAL: This is a well-built male, in no apparent distress. VITAL SIGNS: Temperature 98.2, pulse 68, blood pressure 134/61. HEENT: Atraumatic, normocephalic. Oral mucosa is moist. NECK: Supple. CARDIOVASCULAR: S1, S2 heard. Rate and rhythm regular. RESPIRATORY: Clear to auscultation. GASTROINTESTINAL: Abdomen is soft. MUSCULOSKELETAL: No tenderness, no edema. DERMATOLOGIC: No skin rash. NEUROLOGIC: Alert and awake and oriented x3. No focal neurologic deficits. Moving all the extremit ies. PSYCHIATRIC: Mood and affect normal. LABORATORY DATA: Not done. ASSESSMENT AND PLAN: 1. End-stage renal disease. Continue on hemodialysis, tolerated dialysis well. 2. Hypertension. 3. Anemia. 4. Edema. Plan is to continue on dialysis as tolerated.
[2017-07-25] MEDS ORDERED: Sodium Chloride 0.9% 10 ML ONE ×2 (03:11→19:34)
[2017-07-25] MEDS: Ondansetron HCl/PF 4 MG/2 ML Vial IVP PRN ×2 (03:14→19:35)
[2017-07-25 06:37] LABS: Band 1 % (5-11); Eosinophils 1 % (0-10); Hemoglobin 8.2 g/dL (14.0-18.0); Lymphocytes 4 % (21-51); MDiff Complete? YES; Mean Corpuscular HGB CONC 31.8 g/dL (32.0-36.0); Mean Corpuscular Hemoglobin 31.1 pg (27.0-31.0); Mean Corpuscular Volume 97.6 fl (80.0-94.0); Mean Platelet Volume 10.1 fL (7.4-10.4); Monocytes 17 % (0-10); Neutrophil 75 % (42-75); PLT Morphology Comment Appears Adequate; Platelet Count 199 thou/uL (130-400); Red Blood Cell (RBC) Count 2.63 mill/uL (4.70-6.10); White Blood Cell (WBC) Count 11.9 thou/uL (4.8-10.8)
[2017-07-25 06:58] LABS: Anion Gap 18 mmol/L (10-20); BUN (Urea Nitrogen) 35 mg/dL (8.4-25.7); Calc. Creatinine Clearance 21 mL/min (70-130); Calcium 8.7 mg/dL (7.8-10.44); Carbon Dioxide 24 mmol/L (23-31); Chloride 97 mmol/L (98-107); Estimated GFR-MDRD 17; Glucose 125 mg/dL (83-110); Potassium 4.5 mmol/L (3.5-5.1); Sodium 134 mmol/L (136-145)
[2017-07-25 08:09] LABS: Prothrombin Time 23.5 SEC (12.0-14.7)
[2017-07-25] MEDS ORDERED: READ PPD TEST SITE PO SCH (09:00)
[2017-07-25] MEDS: DULoxetine 60 MG CAP PO SCH (10:20)
[2017-07-25] MEDS: Famotidine 20 MG TAB PO SCH (10:20)
[2017-07-25] MEDS: Aspirin 81 mg Enteric Coated Tablet PO SCH (10:20)
[2017-07-25] MEDS: Fish Oil 1,000 MG CAP PO SCH (10:20)
[2017-07-25] MEDS: hydrALAZINE 25 MG TAB PO SCH ×3 (10:21→20:35)
[2017-07-25] MEDS: Docusate 100 MG CAP PO SCH ×2 (10:22→20:35)
[2017-07-25] MEDS: Labetalol 100 MG TAB PO SCH ×2 (12:00→21:34)
[2017-07-25 12:07] LABS: Bilirubin Small (Negative); Blood, Urine Negative (Negative); Clarity CLOUDY (Clear); Glucose, Urine (Dipstick) Negative (Negative); Leukocyte Negative (Negative); Nitrite Negative (Negative); Protein, Urine (Dipstick) 300 mg/dL (Neg-Trace); Specific Gravity, Urine 1.022 (1.002-1.036); Urobilinogen 0.2 mg/dL (0.2-1.0); pH, Urine 5.5 (5.0-9.0)
[2017-07-25 12:09] LABS: Bacteria/HPF None Seen HPF (None Seen); Squamous Epithelial 0-3 HPF (0-3)
[2017-07-25 12:15] LABS: Pathc Cast-AUWi Flag 3.11 (0-2.49)
[2017-07-25 12:18] LABS: RBC/HPF 0-3 HPF (0-3)
[2017-07-25 12:19] LABS: Hyaline Casts/LPF 0-3 HYALINE CAST LPF (0-3 Hyaline); Manual Microscopic Reviewed? No Path Casts Seen
--- NOTE | 2017-07-25 14:40 | PDOC.PN ---
- Subjective Encounter Start Date: 07/25/17 Encounter Start Time: 14:39 Subjective: feels OK.no new complaints -: denies any chest pain - Objective Resuscitation Status: Resuscitation Status FULL:Full Resuscitation MAR Reviewed: Yes Vital Signs & Weight: Vital Signs (12 hours) Temp Pulse Pulse Resp BP BP BP 07/25/17 12:00 78 139/72 07/25/17 11:00 97.9 F 78 18 139/72 07/25/17 10:21 66 163/108 H 07/25/17 09:15 67 142/64 H 07/25/17 09:00 98.0 F 66 19 142/64 H 07/25/17 04:00 99.3 F 86 18 125/87 Pulse Ox 07/25/17 12:00 07/25/17 11:00 92 L 07/25/17 10:21 07/25/17 09:15 07/25/17 09:00 98 07/25/17 04:00 91 L Weight Weight 183 lb 3.2 oz I&O: 07/24/17 07/25/17 07/26/17 06:59 06:59 06:59 Intake Total 720 Output Total 600 Balance 120 Result Diagrams: 07/25/17 05:15 07/25/17 05:15 Additional Labs: Accuchecks 07/25/17 07/25/17 07/24/17 12:01 03:19 23:46 POC Glucose 138 H 135 H 134 H 07/24/17 07/24/17 07/24/17 20:01 17:58 15:57 POC Glucose 143 H 123 H 125 H Laboratory Tests 07/22/17 07/22/17 07/22/17 02:26 02:26 05:21 INR 2.0 Troponin I 0.274 H 0.257 H 07/22/17 07/23/17 08:23 09:49 INR 2.1 Troponin I 0.244 H Phys Exam - Physical Examination Constitutional: NAD HEENT: PERRLA, moist MMs, sclera anicteric, oral pharynx no lesions Neck: no nodes, no JVD, supple, full ROM Respiratory: no wheezing, no rales, no rhonchi, clear to auscultation bilateral Cardiovascular: RRR, no significant murmur Gastrointestinal: soft, non-tender, no distention, positive bowel sounds Musculoskeletal: no edema, pulses present Neurological: non-focal, normal sensation, moves all 4 limbs Psychiatric: normal affect, A&O x 3 Skin: no rash Dx/Plan (1) Acute on chronic combined systolic (congestive) and diastolic (congestive) heart failure Code(s): I50.43 - ACUTE ON CHRONIC COMBINED SYSTOLIC AND DIASTOLIC HRT FAIL Status: Acute (2) NSTEMI (non-ST elevated myocardial infarction) Code(s): I21.4 - NON-ST ELEVATION (NSTEMI) MYOCARDIAL INFARCTION Status: Acute (3) ESRD (end stage renal disease) Code(s): N18.6 - END STAGE RENAL DISEASE Status: Chronic Comment: HD initiated this admission (4) Diabetes Code(s): E11.9 - TYPE 2 DIABETES MELLITUS WITHOUT COMPLICATIONS Status: Chronic Qualifiers: Diabetes mellitus type: type 2 Diabetes mellitus complication status: with hyperglycemia (5) Hyperlipidemia Code(s): E78.5 - HYPERLIPIDEMIA, UNSPECIFIED Status: Chronic (6) Hypertension Code(s): I10 - ESSENTIAL (PRIMARY) HYPERTENSION Status: Chronic - Plan PT/OT, secondary social studies teacher, respiratory therapy, out of bed/ambulate, DVT proph w/ SCDs cont HD per nephrology. -: cardiology following. fluid Ol improved w HD -: cont cardioprudent meds.On BB,ASA,Imdur,Ranexa.Stable. -: cont coumadin. pharmacy to manage INR -: am labs.Op HD set up .DC when arranged * . Review of Systems - Review of Systems Constitutional: weakness, malaise. negative: fever, chills, sweats, other ENT: negative: Ear Pain, Ear Discharge, Nose Pain, Nose Discharge, Nose Congestion, Mouth Pain, Mouth Swelling, Throat Pain, Throat Swelling, Other Respiratory: negative: Cough, Dry, Shortness of Breath, Hemoptysis, SOB with Excertion, Pleuritic Pain, Sputum, Wheezing Cardiovascular: negative: chest pain, palpitations, orthopnea, paroxysmal nocturnal dyspnea, edema, light headedness, other Gastrointestinal: negative: Nausea, Vomiting, Abdominal Pain, Diarrhea, Constipation, Melena, Hematochezia, Other Genitourinary: negative: Dysuria, Frequency, Incontinence, Hematuria, Retention , Other Musculoskeletal: negative: Neck Pain, Shoulder Pain, Arm Pain, Back Pain, Hand Pain, Leg Pain, Foot Pain, Other Neurological: negative: Weakness, Numbness, Incoordination, Change in Speech, Confusion, Seizures, Other - Medications/Allergies Allergies/Adverse Reactions: Allergies Allergy/AdvReac Type Severity Reaction Status Date / Time Ftyrlly-Vsw-Glc Reductase Allergy Verified 07/22/17 05:17 Inhibitor Medications: Current Medications Acetaminophen (Tylenol) 650 mg PO Q4H PRN PRN Reason: Headache/Fever or Pain Last Admin: 07/24/17 20:40 Dose: 650 mg Acetaminophen (Tylenol) 650 mg [place] Q4H PRN PRN Reason: Headache/Fever or Pain Alprazolam (Xanax) 0.25 mg PO BIDPRN PRN PRN Reason: Anxiety Aspirin (Ecotrin) 81 mg PO DAILY [facility] Last Admin: 07/25/17 10:20 Dose: 81 mg Bisacodyl (Dulcolax) 10 mg PO DAILYPRN PRN PRN Reason: Constipation Cholecalciferol (Vitamin D3) 1,000 units PO BID [facility] Last Admin: 07/25/17 10:20 Dose: 1,000 units Dextrose/Water (Dextrose 50%) 25 gm SLOW IVP PRN PRN PRN Reason: Hypoglycemia Last Admin: 07/23/17 13:39 Dose: 25 gm Docusate Sodium (Colace) 100 mg PO BID [facility] Last Admin: 07/25/17 10:22 Dose: Not Given Duloxetine HCl (Cymbalta) 60 mg PO DAILY [facility] Last Admin: 07/25/17 10:20 Dose: 60 mg Epoetin Kapil (Procrit) 40,000 units SC .[id number] FOR DAY [facility] Famotidine (Pepcid) 20 mg PO DAILY [facility] Last Admin: 07/25/17 10:20 Dose: 20 mg Fish Oil (Fish Oil) 1,000 mg PO DAILY [facility] Last Admin: 07/25/17 10:20 Dose: 1,000 mg Glucagon (Glucagon) 1 mg IM PRN PRN PRN Reason: Hypoglycemia Hydralazine HCl (Apresoline) 100 mg PO TID [facility] Last Admin: 07/25/17 10:21 Dose: 100 mg Dextrose/Water (D5w) 1,000 mls @ 0 mls/hr IV .Q0M PRN; As Directed PRN Reason: Hypoglycemia Insulin Human Lispro (Humalog) 0 units SC .MILD SLIDING SCALE PRN PRN Reason: Mild Correctional Scale Isosorbide Mononitrate (Imdur Er) 30 mg PO BID [facility] Last Admin: 07/25/17 10:21 Dose: 30 mg Labetalol HCl (Normodyne) 200 mg PO BID [facility] Last Admin: 07/25/17 12:00 Dose: Not Given Mirtazapine (Remeron Soltab) 15 mg PO QPM [facility] Last Admin: 07/24/17 20:40 Dose: 15 mg Ondansetron HCl (Zofran Odt) 4 mg PO Q6H PRN PRN Reason: Nausea/Vomiting Ondansetron HCl (Zofran) 4 mg IVP Q6H PRN PRN Reason: Nausea/Vomiting Last Admin: 07/25/17 03:14 Dose: 4 mg Ranolazine (Ranexa) 500 mg PO BID [facility] Last Admin: 07/25/17 10:21 Dose: 500 mg Warfarin Sodium (Coumadin) 5 mg PO 1700 [facility] Last Admin: 07/24/17 18:07 Dose: 5 mg Warfarin Sodium (Coumadin) 2 mg PO 1700 [facility] Last Admin: 07/24/17 18:07 Dose: 2 mg
[2017-07-25] MEDS: Warfarin Sodium 2 MG TAB PO SCH (18:55)
[2017-07-25] MEDS: Warfarin Sodium 5 MG TAB PO SCH (18:56)
--- NOTE | 2017-07-25 19:55 | PRG ---
DATE OF SERVICE: 07/26/2017 SUBJECTIVE: Patient was seen and examined at bedside and overnight events noted. Patient denies any shortness of breath or chest pain or palpitation. No history of nausea or vomiting or diarrhea or f ever or chills or cramps. OBJECTIVE: GENERAL: This is a well-built male in no apparent distress. VITAL SIGNS: Temperature 98.2, pulse 70, respiratory rate 18, blood pressure 160/81. HEENT: Atraumatic, normocephalic. Oral mucosa is moist. NECK: Supple. CARDIOVASCULAR: S1, S2 heard. Rate and rhythm regular. RESPIRATORY: Clear to auscultation. GASTROINTESTINAL: Abdomen is soft. MUSCULOSKELETAL: No tenderness. No edema. DERMATOLOGIC: No skin rash. NEUROLOGIC: Alert and awake and oriented x3. No focal neurologic deficits. Moving all the extremiti es. PSYCHIATRIC: Mood and affect normal. LABORATORY DATA: Potassium is 4.5, BUN is 35, and potassium is 3.5. ASSESSMENT AND PLAN: 1. End-stage renal disease, continue on hemodialysis as tolerated. 2. Hypertension. We will remove fluid with dialysis. 3. Anemia, continue on fluid with dialysis. Plan is to continue on dialysis as tolerated.
[2017-07-25] MEDS ORDERED: Promethazine HCl 25 MG/ML VIAL SLOW IVP PRN (20:21)
--- NOTE | 2017-07-25 20:58 | RAD ---
ABDOMEN ONE VIEW: History: 77-year-old male with history of ileus. FINDINGS: There is some scattered gas and fecal material in the colon. There are several air filled loops of sm all bowel which are borderline in size which could represent either some minimal partial small bowel obstruction or possibly some minimal focal ileus. IMPRESSION: Some minimal gas in nondilated or borderline dilated small bowel, nonspecific, evidence for focal ile us or partial small bowel obstruction. Gas and fecal material throughout the colon. No overt calculus or free air. Lumbar spine spondylosis. POS: [facility]
[2017-07-25] MEDS: Mirtazapine 15 MG Soltab PO SCH (21:34)
[2017-07-26 06:02] LABS: INR-International Normal Ratio 2.5; Prothrombin Time 28.1 SEC (12.0-14.7)
[2017-07-26 06:07] LABS: Anion Gap 18 mmol/L (10-20); BUN (Urea Nitrogen) 34 mg/dL (8.4-25.7); Calc. Creatinine Clearance 26 mL/min (70-130); Calcium 8.5 mg/dL (7.8-10.44); Carbon Dioxide 22 mmol/L (23-31); Chloride 100 mmol/L (98-107); Estimated GFR-MDRD 21; Glucose 109 mg/dL (83-110); Magnesium 2.2 mg/dL (1.6-2.6); Phosphorus 3.9 mg/dL (2.3-4.7); Potassium 4.8 mmol/L (3.5-5.1); Sodium 135 mmol/L (136-145)
[2017-07-26 07:28] LABS: Band 3 % (5-11); Hemoglobin 8.1 g/dL (14.0-18.0); Lymphocytes 8 % (21-51); MDiff Complete? YES; Mean Corpuscular HGB CONC 32.2 g/dL (32.0-36.0); Mean Corpuscular Hemoglobin 31.5 pg (27.0-31.0); Mean Corpuscular Volume 97.8 fl (80.0-94.0); Mean Platelet Volume 10.3 fL (7.4-10.4); Monocytes 16 % (0-10); Neutrophil 72 % (42-75); Platelet Count 201 thou/uL (130-400); RBC Distribution Width 21.2 % (11.5-14.5); Red Blood Cell (RBC) Count 2.56 mill/uL (4.70-6.10); White Blood Cell (WBC) Count 12.1 thou/uL (4.8-10.8)
--- NOTE | 2017-07-26 09:27 | CON ---
DATE OF CONSULTATION: 07/26/2017 REQUESTING PHYSICIAN: Dr. Gabriel HISTORY OF PRESENT ILLNESS: This is a 77-year-old man admitted with a history of acute CHF exacerbation. The patient has a history of severe chronic cardiomyopathy. He presented to the emergency department complaining of worsening fatigue and shortness of breath. Workup at that time revealed acute on chronic renal failure. The patient was admitted and medical management was initiated. The patient gives a history of interm ittent episodes of nausea and emesis. Denies any abdominal pain. Last bowel movement was 2 days ago . He does not recall the last time he passed flatus. The patient denies any abdominal bloating. Abdominal x-ray was obtained yesterday; however, this reveals a few loops of distended small bowel, s uspicious for acute partial small-bowel obstruction, the patient denies any early satiety, unexplain ed weight loss or fevers. PAST MEDICAL HISTORY: Chronic cardiomyopathy, essential hypertension, hyperlipidemia, type 2 diabete s mellitus, Stage 4 chronic kidney disease, paroxysmal atrial fibrillation, gastroesophageal reflux d isease, benign prostatic hypertrophy and obesity. SURGICAL HISTORY: Pertinent for coronary arterial bypass graft. He also gives a history of arthrosc opic surgery to left knee. Denies any abdominal surgeries. SOCIAL HISTORY: The patient is and lives at home in the [facility] with his . He is a retired school social worker who denies any ethanol or illicit drug abuse. He has not smoked for the last 40 years. FAMILY HISTORY: Noncontributory for this patient's age. ALLERGIES: STATINS which gives him a rash. CURRENT MEDICATIONS: I have reviewed prehospital medication which includes furosemide, Levemir, alpr azolam, aspirin, vitamin D3, Procrit, fish oil, hydralazine, Imdur, labetalol, potassium chloride and warfarin. REVIEW OF SYSTEMS: Ten point review of systems essentially unremarkable except for as stated in past medical history and chief complaint. PHYSICAL EXAMINATION: GENERAL: This reveals a 77-year-old normally developed man who is otherwise coherent and interactive and appears stated age. The patient is alert and oriented x3, appears to be in no acute distress at the time of my evaluation. VITAL SIGNS: Includes blood pressure 153/67, pulse 61, respiratory rate is 20, temperature is 98.6 d egrees Fahrenheit, oxygen saturation 93% on room air. HEENT: Reveals normocephalic and atraumatic. His pupils are equal, round, and reactive to light and accommodation. HEART: Reveals irregular rate and rhythm. LUNGS: Clear to auscultation bilaterally. Breathing is regular and unlabored. ABDOMEN: Soft, nontender, nondistended. Bowel sounds in all 4 quadrants appear normoactive. Liver and spleen are nonpalpable below costal margins. NEUROLOGIC: Reveals no focal deficits present. PERTINENT LABORATORY DATA: Today includes CBC with 12,100 white blood cells, hemoglobin 8.1, hematoc rit is 25.1, platelet count is 201,000. Differential counts as follows, 72% segmented neutrophils, 3 bands, 8 lymphocytes, 16 monocytes and 1 basophil. Metabolic profile today; sodium 135, potassium is 4.8, chloride is 100, bicarbonate is 22, BUN 34, cr eatinine is 2.90, glucose 109, magnesium 2.2, phosphorus is 3.9. I have personally reviewed the abdominal x-ray which was obtained yesterday, this indeed shows nonspe cific gas pattern a few loops of distended proximal small bowel. There is, however, gas in the colon down to the rectum. IMPRESSION: 1. History of severe cardiomyopathy. 2. Acute on chronic renal failure. There is no clinical evidence of acute bowel obstruction. RECOMMENDATIONS: Obtain as small bowel follow through with Gastrografin to definitively resolve any suspicion for bowel obstruction. There is no acute surgical indication for this patient at this time . Thank you again, Dr. Gabriel for allowing me the opportunity to participate in the care of this mehrdad ent.
[2017-07-26] MEDS ORDERED: Metoclopramide HCl 10 MG/2 ML VIAL IVP PRN (09:50)
[2017-07-26] MEDS: Fish Oil 1,000 MG CAP PO SCH (09:56)
[2017-07-26] MEDS: Aspirin 81 mg Enteric Coated Tablet PO SCH (09:56)
[2017-07-26] MEDS: hydrALAZINE 25 MG TAB PO SCH ×3 (09:57→20:51)
[2017-07-26] MEDS: DULoxetine 60 MG CAP PO SCH (09:58)
[2017-07-26] MEDS: Famotidine 20 MG TAB PO SCH ×2 (09:58→10:03)
[2017-07-26] MEDS: Docusate 100 MG CAP PO SCH ×2 (09:58→20:53)
[2017-07-26] MEDS: Labetalol 100 MG TAB PO SCH ×2 (09:58→20:52)
--- NOTE | 2017-07-26 12:10 | PDOC.PN ---
- Subjective Encounter Start Date: 07/26/17 Encounter Start Time: 12:08 Subjective: feels well. had some nausea last night but resolved now -: BM this morning - Objective Resuscitation Status: Resuscitation Status FULL:Full Resuscitation MAR Reviewed: Yes Vital Signs & Weight: Vital Signs (12 hours) Temp Pulse Resp BP BP Pulse Ox 07/26/17 09:58 65 163/70 H 07/26/17 09:57 62 163/70 H 07/26/17 08:52 98.3 F 65 18 163/76 H 98 07/26/17 04:00 98.6 F 61 20 153/67 H 93 L Weight Weight 180 lb 12.8 oz I&O: 07/25/17 07/26/17 07/27/17 06:59 06:59 06:59 Intake Total 312 Output Total 0 Balance 312 Result Diagrams: 07/26/17 04:21 07/26/17 04:21 Additional Labs: Accuchecks 07/26/17 07/25/17 07/25/17 04:49 23:19 20:23 POC Glucose 131 H 124 H 157 H 07/25/17 07/25/17 07/25/17 16:53 12:01 08:37 POC Glucose 108 138 H 145 H Radiology Reviewed by me: Yes Phys Exam - Physical Examination Constitutional: NAD HEENT: PERRLA, moist MMs, sclera anicteric, oral pharynx no lesions Neck: no nodes, no JVD, supple, full ROM Respiratory: no wheezing, no rales, no rhonchi, clear to auscultation bilateral Cardiovascular: RRR, no significant murmur Gastrointestinal: soft, non-tender, no distention, positive bowel sounds Musculoskeletal: no edema, pulses present Neurological: non-focal, normal sensation, moves all 4 limbs Psychiatric: normal affect, A&O x 3 Skin: no rash Dx/Plan (1) Acute on chronic combined systolic (congestive) and diastolic (congestive) heart failure Code(s): I50.43 - ACUTE ON CHRONIC COMBINED SYSTOLIC AND DIASTOLIC HRT FAIL Status: Resolved (2) NSTEMI (non-ST elevated myocardial infarction) Code(s): I21.4 - NON-ST ELEVATION (NSTEMI) MYOCARDIAL INFARCTION Status: Acute (3) ESRD (end stage renal disease) Code(s): N18.6 - END STAGE RENAL DISEASE Status: Chronic Comment: HD initiated this admission (4) Diabetes Code(s): E11.9 - TYPE 2 DIABETES MELLITUS WITHOUT COMPLICATIONS Status: Chronic Qualifiers: Diabetes mellitus type: type 2 Diabetes mellitus complication status: with hyperglycemia (5) Hyperlipidemia Code(s): E78.5 - HYPERLIPIDEMIA, UNSPECIFIED Status: Chronic (6) Hypertension Code(s): I10 - ESSENTIAL (PRIMARY) HYPERTENSION Status: Chronic - Plan PT/OT, incentive spirometry, out of bed/ambulate, DVT proph w/SCDs awaiting HD set up as an outpatient.Hemodynamically stable. -: No evidence of SBO.Appreciate GS input.resume diet. -: HD per nephrology.fluid removal as tolerated. -: cont cardiac meds as below.INR therapeutic .monitor. -: care discussed w . * . Review of Systems - Review of Systems Constitutional: weakness, malaise. negative: fever, chills, sweats, other Respiratory: negative: Cough, Dry, Shortness of Breath, Hemoptysis, SOB with Excertion, Pleuritic Pain, Sputum, Wheezing Cardiovascular: negative: chest pain, palpitations, orthopnea, paroxysmal nocturnal dyspnea, edema, light headedness, other Gastrointestinal: negative: Nausea, Vomiting, Abdominal Pain, Diarrhea, Constipation, Melena, Hematochezia, Other Genitourinary: negative: Dysuria, Frequency, Incontinence, Hematuria, Retention , Other Musculoskeletal: negative: Neck Pain, Shoulder Pain, Arm Pain, Back Pain, Hand Pain, Leg Pain, Foot Pain, Other Neurological: negative: Weakness, Numbness, Incoordination, Change in Speech, Confusion, Seizures, Other - Medications/Allergies Allergies/Adverse Reactions: Allergies Allergy/AdvReac Type Severity Reaction Status Date / Time Tcrbwvm-Ybh-Rrm Reductase Allergy Verified 07/22/17 05:17 Inhibitor Medications: Current Medications Acetaminophen (Tylenol) 650 mg PO Q4H PRN PRN Reason: Headache/Fever or Pain Last Admin: 07/24/17 20:40 Dose: 650 mg Acetaminophen (Tylenol) 650 mg MD Q4H PRN PRN Reason: Headache/Fever or Pain Alprazolam (Xanax) 0.25 mg PO BIDPRN PRN PRN Reason: Anxiety Aspirin (Ecotrin) 81 mg PO DAILY [facility] Last Admin: 07/26/17 09:56 Dose: 81 mg Bisacodyl (Dulcolax) 10 mg PO DAILYPRN PRN PRN Reason: Constipation Cholecalciferol (Vitamin D3) 1,000 units PO BID [facility] Last Admin: 07/26/17 09:56 Dose: 1,000 units Dextrose/Water (Dextrose 50%) 25 gm SLOW IVP PRN PRN PRN Reason: Hypoglycemia Last Admin: 07/23/17 13:39 Dose: 25 gm Docusate Sodium (Colace) 100 mg PO BID [facility] Last Admin: 07/26/17 09:58 Dose: 100 mg Duloxetine HCl (Cymbalta) 60 mg PO DAILY [facility] Last Admin: 07/26/17 09:58 Dose: 60 mg Epoetin Kapil (Procrit) 40,000 units SC .[id number] FOR DAY [facility] Famotidine (Pepcid) 20 mg PO DAILY [facility] Last Admin: 07/26/17 10:03 Dose: 20 mg Fish Oil (Fish Oil) 1,000 mg PO DAILY [facility] Last Admin: 07/26/17 09:56 Dose: 1,000 mg Glucagon (Glucagon) 1 mg IM PRN PRN PRN Reason: Hypoglycemia Hydralazine HCl (Apresoline) 100 mg PO TID [facility] Last Admin: 07/26/17 09:57 Dose: 100 mg Dextrose/Water (D5w) 1,000 mls @ 0 mls/hr IV .Q0M PRN; As Directed PRN Reason: Hypoglycemia Insulin Human Lispro (Humalog) 0 units SC .MILD SLIDING SCALE PRN PRN Reason: Mild Correctional Scale Isosorbide Mononitrate (Imdur Er) 30 mg PO BID [facility] Last Admin: 07/26/17 09:58 Dose: 30 mg Labetalol HCl (Normodyne) 200 mg PO BID [facility] Last Admin: 07/26/17 09:58 Dose: 200 mg Metoclopramide HCl (Reglan) 10 mg IVP Q6H PRN PRN Reason: Nausea/Vomiting Mirtazapine (Remeron Soltab) 15 mg PO QPM [facility] Last Admin: 07/25/17 21:34 Dose: 15 mg Ondansetron HCl (Zofran Odt) 4 mg PO Q6H PRN PRN Reason: Nausea/Vomiting Ondansetron HCl (Zofran) 4 mg IVP Q6H PRN PRN Reason: Nausea/Vomiting Last Admin: 07/25/17 19:35 Dose: 4 mg Promethazine HCl (Phenergan) 6.25 mg SLOW IVP Q8H PRN PRN Reason: Nausea Ranolazine (Ranexa) 500 mg PO BID [facility] Last Admin: 07/26/17 09:58 Dose: 500 mg Sodium Chloride (Flush - Normal Saline) 10 ml IVF PRN PRN PRN Reason: Saline Flush Warfarin Sodium (Coumadin) 5 mg PO 1700 [facility] Last Admin: 07/25/17 18:56 Dose: 5 mg Warfarin Sodium (Coumadin) 2 mg PO 1700 [facility] Last Admin: 07/25/17 18:55 Dose: 2 mg
--- NOTE | 2017-07-26 13:54 | EKG ---
Test Reason : Blood Pressure : / mmHG Vent. Rate : 069 BPM Atrial Rate : 075 BPM P-R Int : 000 ms QRS Dur : 188 ms QT Int : 528 ms P-R-T Axes : 000 -34 093 degrees QTc Int : 565 ms Atrial fibrillation Left axis deviation Right bundle branch block Abnormal ECG Confirmed by AUSTIN MORSE, MARY ([id number]), story editor BARBARA OSORIO ([id number]) on 07/26/2017 1:52:51 PM Referred By: Confirmed By:MARY AVILA MD
--- NOTE | 2017-07-26 13:54 | EKG ---
Test Reason : Blood Pressure : / mmHG Vent. Rate : 055 BPM Atrial Rate : 075 BPM P-R Int : 000 ms QRS Dur : 186 ms QT Int : 552 ms P-R-T Axes : 000 -69 065 degrees QTc Int : 528 ms Atrial fibrillation with slow ventricular response Left axis deviation Right bundle branch block Possible Inferior infarct , age undetermined Abnormal ECG Confirmed by AUSTIN MORSE, MARY ([id number]), technical writer and editor BARBARA OSORIO ([id number]) on 07/26/2017 1:52:50 PM Referred By: Confirmed By:MARY AVILA MD
[2017-07-26] MEDS ORDERED: Tuberculin PPD 0.1 ML VIAL I-DERMAL SCH (14:00)
[2017-07-26] MEDS: Warfarin Sodium 2 MG TAB PO SCH (15:59)
[2017-07-26] MEDS: Warfarin Sodium 5 MG TAB PO SCH (15:59)
[2017-07-26] MEDS: Mirtazapine 15 MG Soltab PO SCH (20:53)
--- NOTE | 2017-07-26 21:59 | PRG ---
DATE OF SERVICE: 07/26/2017 SUBJECTIVE: Patient was seen and examined at bedside and overnight events noted. Patient denies any shortness of breath or chest pain or palpitation. No history of nausea or vomiting or diarrhea or f ever or chills or cramps. OBJECTIVE: GENERAL: This is a thin built male, in no apparent distress. VITAL SIGNS: Temperature 97.9, pulse 62, respiratory rate 20, blood pressure 151/71. HEENT: Atraumatic, normocephalic, oral mucosa is moist. NECK: Supple. CARDIOVASCULAR: S1, S2 heard, rate and rhythm regular. RESPIRATORY: Clear to auscultation. GASTROINTESTINAL: Abdomen is soft. MUSCULOSKELETAL: No tenderness, no edema. DERMATOLOGIC: No skin rash. NEUROLOGIC: Alert and awake and oriented x3. No focal neurologic deficits. Moving all the extremit ies. PSYCHIATRIC: Mood and affect normal. LABORATORY DATA: Potassium is 4.8, BUN is 34, creatinine is 2.9. ASSESSMENT AND PLAN: 1. End-stage renal disease. We will continue on hemodialysis. Follow with case management for outp atient placement. 2. Hypertension. We will remove fluid. 3. Edema, controlled. 4. Anemia. Continue RADHA. Plan is to continue on dialysis. Follow with case management for outpatient placement.
[2017-07-27 05:19] VITALS: BMI 27.6
[2017-07-27 05:35] LABS: INR-International Normal Ratio 2.6; Prothrombin Time 28.8 SEC (12.0-14.7)
[2017-07-27 06:02] LABS: Anion Gap 18 mmol/L (10-20); BUN (Urea Nitrogen) 53 mg/dL (8.4-25.7); Calc. Creatinine Clearance 21 mL/min (70-130); Calcium 8.8 mg/dL (7.8-10.44); Carbon Dioxide 24 mmol/L (23-31); Chloride 99 mmol/L (98-107); Estimated GFR-MDRD 17; Glucose 104 mg/dL (83-110); Magnesium 2.2 mg/dL (1.6-2.6); Phosphorus 3.5 mg/dL (2.3-4.7); Potassium 3.8 mmol/L (3.5-5.1); Sodium 137 mmol/L (136-145)
[2017-07-27] MEDS ORDERED: Heparin 10,000 UNITS/ 10 ML VIAL ONE (09:00)
--- NOTE | 2017-07-27 10:19 | PRG ---
DATE OF SERVICE: 07/27/2017 SUBJECTIVE: Patient was seen and examined at bedside and overnight events noted. Patient denies any shortness of breath or chest pain or palpitation. No history of nausea or vomiting or diarrhea or f ever or chills or cramps. OBJECTIVE: GENERAL: This is an obese male seen during dialysis. VITAL SIGNS: Temperature 97.4, pulse 60, respiratory rate 16, blood pressure 140/67. HEENT: Atraumatic, normocephalic. Oral mucosa is moist. NECK: Supple. CARDIOVASCULAR: S1, S2 heard. Rate and rhythm regular. RESPIRATORY: Clear to auscultation. GASTROINTESTINAL: Abdomen is soft. MUSCULOSKELETAL: No tenderness. No edema. DERMATOLOGIC: No skin rash. NEUROLOGIC: Alert and awake and oriented x3. No focal neurologic deficits. Moving all the extremiti es. PSYCHIATRIC: Mood and affect normal. LABORATORY DATA: Potassium is 3.8, BUN 53, and creatinine 3.5. ASSESSMENT AND PLAN: 1. End-stage renal disease, continue on hemodialysis. Follow with case management for outpatient di alysis placement. 2. Hypertension, remove fluid with dialysis. 3. Edema. 4. Anemia. Continue as tolerated. 5. Follow with case management for outpatient placement and will follow.
--- NOTE | 2017-07-27 11:37 | PRG ---
DATE OF SERVICE: 07/27/2017 SUBJECTIVE: Mr. Liu is awake and alert. He reports no abdominal pain, nausea or vomiting. He to lerates oral intake since yesterday. He reported 1 bowel movement last night. OBJECTIVE: VITAL SIGNS: Include blood pressure 140/67, pulse is 60, respiratory rate 16, maximum temperature in the last 24 hours is 98.8 degrees Fahrenheit. Oxygen saturation 96% on room air. HEENT: Reveals normocephalic and atraumatic. Pupils equal, round, reactive to light and accommodati on. HEART: Reveals regular rate and rhythm, no murmurs or gallops auscultated. CHEST: Clear to auscultation bilaterally. Breathing is regular and unlabored. ABDOMEN: Soft, nontender, nondistended. LABORATORY DATA: Today includes metabolic profile: Sodium 137, potassium is 3.8, chloride is 99, bi carbonate 24, BUN 53, creatinine is 3.57, glucose is 104, magnesium is 2.2. IMPRESSION: 1. Resolved abdominal pain and nausea. 2. Acute on chronic renal failure. PLAN: 1. The patient continues hemodialysis per medical team. There is no acute surgical indication for t his patient at this time. 2. Diet and activity can be advanced as tolerated. General Surgery will sign off at this time and will be available to reevaluate the patient on demand.
[2017-07-27] MEDS: Aspirin 81 mg Enteric Coated Tablet PO SCH (12:19)
[2017-07-27] MEDS: Docusate 100 MG CAP PO SCH ×2 (12:20→21:49)
[2017-07-27] MEDS: Famotidine 20 MG TAB PO SCH (12:20)
[2017-07-27] MEDS: DULoxetine 60 MG CAP PO SCH (12:20)
[2017-07-27] MEDS: hydrALAZINE 25 MG TAB PO SCH ×3 (12:21→21:50)
[2017-07-27] MEDS: Fish Oil 1,000 MG CAP PO SCH (12:21)
[2017-07-27] MEDS: Labetalol 100 MG TAB PO SCH ×2 (12:22→17:45)
--- NOTE | 2017-07-27 14:16 | PDOC.PN ---
- Subjective Encounter Start Date: 07/27/17 Encounter Start Time: 14:23 -: non-verbal, old records requested/rev Subjective: Pt seen and examined for CHF, RAHEL on HD -: Pt denies any CP, Fever, N/V/D - Objective Resuscitation Status: Resuscitation Status FULL:Full Resuscitation MAR Reviewed: Yes Vital Signs & Weight: Vital Signs (12 hours) Temp Pulse Resp BP Pulse Ox 07/27/17 12:25 98.3 F 87 15 175/76 H 96 07/27/17 12:22 69 07/27/17 12:21 69 07/27/17 11:49 97.4 F L 69 18 152/68 H 98 07/27/17 07:59 97.4 F L 60 16 140/67 96 07/27/17 04:00 97.8 F 64 18 151/76 H 96 Weight Weight 182 lb 1.6 oz I&O: 07/26/17 07/27/17 07/28/17 06:59 06:59 06:59 Intake Total 312 1310 Output Total 0 600 Balance 312 710 Result Diagrams: 07/26/17 04:21 07/27/17 04:11 Additional Labs: Accuchecks 07/27/17 07/27/17 07/26/17 11:11 05:48 20:08 POC Glucose 92 111 H 153 H 07/26/17 16:07 POC Glucose 151 H Radiology Reviewed by me: Yes Phys Exam - Physical Examination HEENT: PERRLA, moist MMs, sclera anicteric, TM's clear, oral pharynx no lesions , 2+ tonsils Neck: no nodes, no JVD, supple, full ROM Respiratory: no wheezing, no rales, no rhonchi, wheezing present, clear to auscultation bilateral Cardiovascular: RRR, no significant murmur, no rub, gallop, irregular Gastrointestinal: soft, non-tender, no distention, positive bowel sounds Musculoskeletal: no edema, pulses present, edema present Neurological: non-focal, normal sensation, moves all 4 limbs Dx/Plan (1) NSTEMI (non-ST elevated myocardial infarction) Code(s): I21.4 - NON-ST ELEVATION (NSTEMI) MYOCARDIAL INFARCTION Status: Acute (2) ESRD (end stage renal disease) Code(s): N18.6 - END STAGE RENAL DISEASE Status: Chronic Comment: HD initiated this admission (3) Acute on chronic combined systolic (congestive) and diastolic (congestive) heart failure Code(s): I50.43 - ACUTE ON CHRONIC COMBINED SYSTOLIC AND DIASTOLIC HRT FAIL Status: Resolved (4) TIA (transient ischemic attack) Status: Acute (5) CHF exacerbation Code(s): I50.9 - HEART FAILURE, UNSPECIFIED Status: Chronic (6) CKD (chronic kidney disease) Code(s): N18.9 - CHRONIC KIDNEY DISEASE, UNSPECIFIED Status: Chronic Qualifiers: Chronic kidney disease stage: stage 2 (mild) Qualified Code(s): N18.2 - Chronic kidney disease, stage 2 (mild) (7) Diabetes Code(s): E11.9 - TYPE 2 DIABETES MELLITUS WITHOUT COMPLICATIONS Status: Chronic Qualifiers: Diabetes mellitus type: type 2 Diabetes mellitus complication status: with hyperglycemia (8) Hyperlipidemia Code(s): E78.5 - HYPERLIPIDEMIA, UNSPECIFIED Status: Chronic - Plan cont current plan of care, plan discussed w/ family, PT/OT, DVT proph w/heparin 1) Continue HD -: 2) Fluid Restriction daily weight -: 3Insulin sliding scale for DM -: 4) Continue Procrit for anemia of CKD Plan Review of Systems - Review of Systems Constitutional: negative: fever, chills, sweats, weakness, malaise, other Eyes: negative: Pain, Vision Change, Conjunctivae Inflammation, Eyelid Inflammation, Redness, Other ENT: negative: Ear Pain, Ear Discharge, Nose Pain, Nose Discharge, Nose Congestion, Mouth Pain, Mouth Swelling, Throat Pain, Throat Swelling, Other Respiratory: negative: Cough, Dry, Shortness of Breath, Hemoptysis, SOB with Excertion, Pleuritic Pain, Sputum, Wheezing Cardiovascular: negative: chest pain, palpitations, orthopnea, paroxysmal nocturnal dyspnea, edema, light headedness, other Gastrointestinal: negative: Nausea, Vomiting, Abdominal Pain, Diarrhea, Constipation, Melena, Hematochezia, Other Genitourinary: negative: Dysuria, Frequency, Incontinence, Hematuria, Retention , Other Musculoskeletal: negative: Neck Pain, Shoulder Pain, Arm Pain, Back Pain, Hand Pain, Leg Pain, Foot Pain, Other Neurological: Weakness. negative: Numbness, Incoordination, Change in Speech, Confusion, Seizures, Other - Medications/Allergies Allergies/Adverse Reactions: Allergies Allergy/AdvReac Type Severity Reaction Status Date / Time Dublsxm-Dnf-Clj Reductase Allergy Verified 07/22/17 05:17 Inhibitor Medications: Current Medications Acetaminophen (Tylenol) 650 mg PO Q4H PRN PRN Reason: Headache/Fever or Pain Last Admin: 07/24/17 20:40 Dose: 650 mg Acetaminophen (Tylenol) 650 mg DC Q4H PRN PRN Reason: Headache/Fever or Pain Alprazolam (Xanax) 0.25 mg PO BIDPRN PRN PRN Reason: Anxiety Aspirin (Ecotrin) 81 mg PO DAILY [facility] Last Admin: 07/27/17 12:19 Dose: 81 mg Bisacodyl (Dulcolax) 10 mg PO DAILYPRN PRN PRN Reason: Constipation Cholecalciferol (Vitamin D3) 1,000 units PO BID [facility] Last Admin: 07/27/17 12:20 Dose: Not Given Dextrose/Water (Dextrose 50%) 25 gm SLOW IVP PRN PRN PRN Reason: Hypoglycemia Last Admin: 07/23/17 13:39 Dose: 25 gm Docusate Sodium (Colace) 100 mg PO BID [facility] Last Admin: 07/27/17 12:20 Dose: Not Given Duloxetine HCl (Cymbalta) 60 mg PO DAILY [facility] Last Admin: 07/27/17 12:20 Dose: 60 mg Epoetin Kapil (Procrit) 40,000 units SC .F5I-RFOR FOR DAY [facility] Famotidine (Pepcid) 20 mg PO DAILY [facility] Last Admin: 07/27/17 12:20 Dose: 20 mg Fish Oil (Fish Oil) 1,000 mg PO DAILY [facility] Last Admin: 07/27/17 12:21 Dose: 1,000 mg Glucagon (Glucagon) 1 mg IM PRN PRN PRN Reason: Hypoglycemia Hydralazine HCl (Apresoline) 100 mg PO TID [facility] Last Admin: 07/27/17 12:21 Dose: Not Given Dextrose/Water (D5w) 1,000 mls @ 0 mls/hr IV .Q0M PRN; As Directed PRN Reason: Hypoglycemia Insulin Human Lispro (Humalog) 0 units SC .MILD SLIDING SCALE PRN PRN Reason: Mild Correctional Scale Isosorbide Mononitrate (Imdur Er) 30 mg PO BID [facility] Last Admin: 07/27/17 12:21 Dose: Not Given Labetalol HCl (Normodyne) 200 mg PO BID [facility] Last Admin: 07/27/17 12:22 Dose: Not Given Metoclopramide HCl (Reglan) 10 mg IVP Q6H PRN PRN Reason: Nausea/Vomiting Mirtazapine (Remeron Soltab) 15 mg PO QPM [facility] Last Admin: 07/26/17 20:53 Dose: 15 mg Read Ppd Test Site 0 each PO 1400 [facility] Stop: 07/29/17 14:01 Ondansetron HCl (Zofran Odt) 4 mg PO Q6H PRN PRN Reason: Nausea/Vomiting Ondansetron HCl (Zofran) 4 mg IVP Q6H PRN PRN Reason: Nausea/Vomiting Last Admin: 07/25/17 19:35 Dose: 4 mg Promethazine HCl (Phenergan) 6.25 mg SLOW IVP Q8H PRN PRN Reason: Nausea Ranolazine (Ranexa) 500 mg PO BID [facility] Last Admin: 07/27/17 12:22 Dose: Not Given Sodium Chloride (Flush - Normal Saline) 10 ml IVF PRN PRN PRN Reason: Saline Flush Last Admin: 07/26/17 20:58 Dose: 10 ml Warfarin Sodium (Coumadin) 5 mg PO 1700 [facility] Last Admin: 07/26/17 15:59 Dose: 5 mg Warfarin Sodium (Coumadin) 2 mg PO 1700 [facility] Last Admin: 07/26/17 15:59 Dose: 2 mg
[2017-07-27] MEDS: Acetaminophen 325 MG TAB PO PRN (14:38)
[2017-07-27] MEDS: Warfarin Sodium 2 MG TAB PO SCH (17:42)
[2017-07-27] MEDS: Warfarin Sodium 5 MG TAB PO SCH (17:42)
[2017-07-27] MEDS: Mirtazapine 15 MG Soltab PO SCH (21:49)
[2017-07-28 05:35] LABS: INR-International Normal Ratio 2.8
[2017-07-28 06:02] LABS: Anion Gap 14 mmol/L (10-20); BUN (Urea Nitrogen) 31 mg/dL (8.4-25.7); Calc. Creatinine Clearance 29 mL/min (70-130); Calcium 8.7 mg/dL (7.8-10.44); Carbon Dioxide 29 mmol/L (23-31); Chloride 101 mmol/L (98-107); Estimated GFR-MDRD 24; Glucose 98 mg/dL (83-110); Phosphorus 2.6 mg/dL (2.3-4.7); Potassium 3.6 mmol/L (3.5-5.1); Sodium 140 mmol/L (136-145)
[2017-07-28] MEDS: Labetalol 100 MG TAB PO SCH (08:55)
[2017-07-28] MEDS: Docusate 100 MG CAP PO SCH (08:56)
[2017-07-28] MEDS: DULoxetine 60 MG CAP PO SCH (08:56)
[2017-07-28] MEDS: Aspirin 81 mg Enteric Coated Tablet PO SCH (08:56)
[2017-07-28] MEDS: Famotidine 20 MG TAB PO SCH (08:56)
[2017-07-28] MEDS: Fish Oil 1,000 MG CAP PO SCH (08:56)
[2017-07-28] MEDS: Acetaminophen 325 MG TAB PO PRN (09:45)
[2017-07-28] MEDS: hydrALAZINE 25 MG TAB PO SCH ×2 (11:30→15:27)
[2017-07-28 11:53] VITALS: BP 145/65; TEMP 97.9
--- NOTE | 2017-07-28 13:42 | PDOC.PN ---
- Subjective Encounter Start Date: 07/28/17 Encounter Start Time: 13:48 Subjective: Pt seen and examined for CHF -: sitting in chair, walked 300 feet with PT - Objective Resuscitation Status: Resuscitation Status FULL:Full Resuscitation Vital Signs & Weight: Vital Signs (12 hours) Temp Pulse Resp BP Pulse Ox 07/28/17 11:20 97.9 F 59 L 14 145/65 H 98 07/28/17 08:00 97.1 F L 67 18 154/72 H 99 07/28/17 04:00 98.0 F 61 20 143/65 H 94 L Weight Weight 181 lb 13.043 oz I&O: 07/27/17 07/28/17 07/29/17 06:59 06:59 06:59 Intake Total 1310 1220 Output Total 600 2125 Balance 710 -905 Result Diagrams: 07/26/17 04:21 07/28/17 04:56 Additional Labs: Accuchecks 07/28/17 07/28/17 07/27/17 11:26 06:11 22:04 POC Glucose 127 H 102 114 H 07/27/17 07/26/17 16:55 08:25 POC Glucose 122 H 116 H Phys Exam - Physical Examination HEENT: PERRLA, moist MMs, sclera anicteric, TM's clear, oral pharynx no lesions , 2+ tonsils Cardiovascular: RRR, no significant murmur, no rub, gallop, irregular Gastrointestinal: soft, non-tender, no distention, positive bowel sounds Musculoskeletal: no edema, pulses present, edema present Neurological: non-focal, normal sensation, moves all 4 limbs Dx/Plan (1) NSTEMI (non-ST elevated myocardial infarction) Code(s): I21.4 - NON-ST ELEVATION (NSTEMI) MYOCARDIAL INFARCTION Status: Acute (2) ESRD (end stage renal disease) Code(s): N18.6 - END STAGE RENAL DISEASE Status: Chronic Comment: HD initiated this admission (3) Acute on chronic combined systolic (congestive) and diastolic (congestive) heart failure Code(s): I50.43 - ACUTE ON CHRONIC COMBINED SYSTOLIC AND DIASTOLIC HRT FAIL Status: Resolved (4) TIA (transient ischemic attack) Status: Acute (5) CHF exacerbation Code(s): I50.9 - HEART FAILURE, UNSPECIFIED Status: Chronic (6) CKD (chronic kidney disease) Code(s): N18.9 - CHRONIC KIDNEY DISEASE, UNSPECIFIED Status: Chronic Qualifiers: Chronic kidney disease stage: stage 2 (mild) Qualified Code(s): N18.2 - Chronic kidney disease, stage 2 (mild) (7) Diabetes Code(s): E11.9 - TYPE 2 DIABETES MELLITUS WITHOUT COMPLICATIONS Status: Chronic Qualifiers: Diabetes mellitus type: type 2 Diabetes mellitus complication status: with hyperglycemia (8) Hyperlipidemia Code(s): E78.5 - HYPERLIPIDEMIA, UNSPECIFIED Status: Chronic - Plan cont current plan of care, PT/OT, DVT proph w/lovenox Continue Diuretics, Fluid Restriction -: Continue Procrit for Anemia sec to CKD -: Rehab Consulted -: Awaiting Placement * . Review of Systems - Review of Systems Respiratory: negative: Cough, Dry, Shortness of Breath, Hemoptysis, SOB with Excertion, Pleuritic Pain, Sputum, Wheezing Cardiovascular: negative: chest pain, palpitations, orthopnea, paroxysmal nocturnal dyspnea, edema, light headedness, other Gastrointestinal: negative: Nausea, Vomiting, Abdominal Pain, Diarrhea, Constipation, Melena, Hematochezia, Other - Medications/Allergies Allergies/Adverse Reactions: Allergies Allergy/AdvReac Type Severity Reaction Status Date / Time Otzympj-Tto-Bax Reductase Allergy Verified 07/22/17 05:17 Inhibitor Medications: Current Medications Acetaminophen (Tylenol) 650 mg PO Q4H PRN PRN Reason: Headache/Fever or Pain Last Admin: 07/28/17 09:45 Dose: 650 mg Acetaminophen (Tylenol) 650 mg [place] Q4H PRN PRN Reason: Headache/Fever or Pain Alprazolam (Xanax) 0.25 mg PO BIDPRN PRN PRN Reason: Anxiety Aspirin (Ecotrin) 81 mg PO DAILY [facility] Last Admin: 07/28/17 08:56 Dose: 81 mg Bisacodyl (Dulcolax) 10 mg PO DAILYPRN PRN PRN Reason: Constipation Cholecalciferol (Vitamin D3) 1,000 units PO BID [facility] Last Admin: 07/28/17 08:56 Dose: 1,000 units Dextrose/Water (Dextrose 50%) 25 gm SLOW IVP PRN PRN PRN Reason: Hypoglycemia Last Admin: 07/23/17 13:39 Dose: 25 gm Docusate Sodium (Colace) 100 mg PO BID [facility] Last Admin: 07/28/17 08:56 Dose: 100 mg Duloxetine HCl (Cymbalta) 60 mg PO DAILY [facility] Last Admin: 07/28/17 08:56 Dose: 60 mg Epoetin Kapil (Procrit) 40,000 units SC .R2F-BWFH FOR DAY [facility] Famotidine (Pepcid) 20 mg PO DAILY [facility] Last Admin: 07/28/17 08:56 Dose: 20 mg Fish Oil (Fish Oil) 1,000 mg PO DAILY [facility] Last Admin: 07/28/17 08:56 Dose: 1,000 mg Glucagon (Glucagon) 1 mg IM PRN PRN PRN Reason: Hypoglycemia Hydralazine HCl (Apresoline) 100 mg PO TID [facility] Last Admin: 07/28/17 11:30 Dose: 100 mg Dextrose/Water (D5w) 1,000 mls @ 0 mls/hr IV .Q0M PRN; As Directed PRN Reason: Hypoglycemia Insulin Human Lispro (Humalog) 0 units SC .MILD SLIDING SCALE PRN PRN Reason: Mild Correctional Scale Isosorbide Mononitrate (Imdur Er) 30 mg PO BID [facility] Last Admin: 07/28/17 08:56 Dose: 30 mg Labetalol HCl (Normodyne) 200 mg PO BID [facility] Last Admin: 07/28/17 08:55 Dose: 200 mg Metoclopramide HCl (Reglan) 10 mg IVP Q6H PRN PRN Reason: Nausea/Vomiting Mirtazapine (Remeron Soltab) 15 mg PO QPM [facility] Last Admin: 07/27/17 21:49 Dose: 15 mg Read Ppd Test Site 0 each PO 1400 [facility] Stop: 07/29/17 14:01 Ondansetron HCl (Zofran Odt) 4 mg PO Q6H PRN PRN Reason: Nausea/Vomiting Ondansetron HCl (Zofran) 4 mg IVP Q6H PRN PRN Reason: Nausea/Vomiting Last Admin: 07/25/17 19:35 Dose: 4 mg Promethazine HCl (Phenergan) 6.25 mg SLOW IVP Q8H PRN PRN Reason: Nausea Ranolazine (Ranexa) 500 mg PO BID [facility] Last Admin: 07/28/17 08:56 Dose: 500 mg Sodium Chloride (Flush - Normal Saline) 10 ml IVF PRN PRN PRN Reason: Saline Flush Last Admin: 07/26/17 20:58 Dose: 10 ml Warfarin Sodium (Coumadin) 5 mg PO 1700 [facility] Last Admin: 07/27/17 17:42 Dose: 5 mg Warfarin Sodium (Coumadin) 2 mg PO 1700 [facility] Last Admin: 07/27/17 17:42 Dose: 2 mg
[2017-07-28] MEDS ORDERED: READ PPD TEST SITE PO SCH (14:00)
[2017-07-28] MEDS ORDERED: Warfarin Sodium 3 MG TAB PO SCH (17:00)
--- NOTE | 2017-07-29 01:52 | PRG ---
DATE OF SERVICE: 07/28/2017 SUBJECTIVE: Patient was seen and examined at bedside and overnight events noted. Patient denies shortness of breath or cramps or chest pain or palpitation. No Nausea or vomiting or diarrhea or fever or chills OBJECTIVE: GENERAL: This is a well-built male in no apparent distress. VITAL SIGNS: Temperature 97.9, pulse 59, respiratory rate 18, blood pressure 144/65. Musculoskeletal : No tenderness, No edema HEENT: Atraumatic normocephalic Neck: Supple Cardiovascular: S1S2 heard, Rate and rhythm regular Respiratory: Clear to auscultation Gastrointestinal: Abdomen is soft Dermatologic : No skin rash Neurologic: Alert and awake and oriented X3 No focal neurologic deficits. Moving all the extremities. Psychiatric: Mood and affect normal LABORATORY DATA: Potassium is 3.6, BUN is 31, creatinine is 2.5. ASSESSMENT AND PLAN: 1. End-stage renal disease, continue hemodialysis as tolerated and follow with case management for outpatient placement. 2. Anemia. 3. Edema. 4. Hypertension. Overall, the patient is tolerating dialysis well, okay to discharge with outpatient followup with dialysis. We will follow. KARLEYD
--- NOTE | 2017-07-29 07:08 | DIS ---
DATE OF ADMISSION: 07/22/2017 DATE OF DISCHARGE: 07/28/2017 ADMITTING DIAGNOSES: Acute on chronic congestive heart failure, acute on chronic kidney disease and hypokalemia. HISTORY: He is a 77-year-old man with a history of congestive heart failure, coronary artery disease. He came in because of having some fluid overload, feeling shortness of breath with acute on chronic kidney disease, with worsening kidney function. He came to the hospital and treated where the hypokalemia corrected and then Nephrology consulted, and patient was treated with diuretics. Anemia was treated with Epogen, collected, and dialysis was started. Cardiology was also consulted for the patient's history of coronary artery disease, so troponin was elevated, but it was a non-STEMI, but demand ischemia most likely, so patient was kept on the medical management. Eventually, the patient improved and dialysis was set up as the outpatient and plan to send him home today. DISCHARGE CONDITION: He is alert, oriented, feeling fine, walking with a walker. VITAL SIGNS: Pulse is 59, blood pressure 140/64, respiratory rate 14, temperature 98.4, saturating 98% on room air. LABORATORY: Lab shows a hemoglobin of 8.1, hematocrit 25.1, platelets 201. WBC 12.1, INR 2.8. Sodium 140, potassium 3.6, chloride 101, carbon dioxide 29, BUN 31, creatinine 2.58, glucose 127. DISCHARGE MEDICATIONS: Will be Cymbalta 60 mg daily, Epogen 40,000 units weekly , hydralazine 100 mg t.i.d., insulin 30 units b.i.d., insulin lispro, Humalog sliding scale, Imdur 20 mg b.i.d., labetalol 20 mg b.i.d., Remeron 15 mg at bedtime, and warfarin 6 mg. DISCHARGE DIAGNOSES: 1. Non-ST elevation myocardial infarction with demand ischemia. 2. End-stage renal disease, started dialysis due to chronic failure. DISPOSITION: To home with dialysis outpatient. Follow PCP. DOMINIQUE
--- NOTE | 2017-07-30 17:20 | PDOC.OP ---
Operative Note - Operative Note Operative Note: PROCEDURE: Right internal jugular tunneled hemodialysis catheter and left Hayde AV fistula SURGEON: Rahul London M.D. DATE OF PROCEDURE: 07/23/2017 PREOPERATIVE DIAGNOSIS: Renal failure POSTOPERATIVE DIAGNOSIS: Renal failure HISTORY: Patient with chronic renal failure which has progressed to end-stage renal failure requiring dialysis for fluid overload. He has undergone several rounds of hemodialysis via a femoral dialysis catheter which he has tolerated well. He now presents for placement of a tunneled hemodialysis catheter for ongoing outpatient hemodialysis as well as fistula creation for long-term access. PROCEDURE IN DETAIL: After informed consent was obtained and appropriate preoperative antibiotics administered, the patient was taken to the operating room and placed in the supine position and anesthesia was administered. The neck and chest were prepped and draped in a standard sterile fashion and the patient placed in Trendelenburg position. A sterile ultrasound probe was used to identify the patent compressible right IJ vein which was accessed under direct ultrasound guidance. A wire was threaded through the needle and confirmed by ultrasound to be within the patent compressible vessel with the tip in the vena cava by fluoroscopy. Local anesthesia was infused to the skin and subcutaneous tissues of the right neck and chest. An infraclavicular incision was made and a catheter tunneled from the infraclavicular to the right IJ access site. The right IJ was sequentially dilated over the wire following which a dilator and sheath were placed over the wire and the dilator and wire removed leaving the sheath in place. The catheter was tunneled through the sheath which was then split and removed leaving the catheter in place. This was confirmed by fluoroscopy to be in good position in the superior vena cava with no kinking of the course of the catheter. Both ports easily aspirated dark venous nonpulsatile blood and easily flushed without resistance. Heparin was instilled to the quantity specified on the hub, and the hub was secured to the skin with 3-0 nylon sutures. The skin incision at the neck was closed in two layers with 4-0 Monocryl suture and Dermabond dressings were placed. The skin at the exit site was snugged up around the catheter with 4-0 Monocryl suture and Dermabond was placed there as well. Once the Dermabond was dry, a Biopatch and Tegaderm dressing was placed at the exit site. Attention was then turned to creation of the fistula. The arm was prepped and draped in a standard sterile fashion and an incision made between the palpable cephalic vein and radial artery. Local anesthesia was infused for postoperative pain control. Dissection was carried out to the cephalic vein, which appeared to be of adequate quality and caliber to support a fistula. This was dissected free circumferentially, ligated, and divided distally, and spatulated with El scissors. This was serially interrogated with cardiac dilators and easily accepted up to a 3.5 mm cardiac dilator. This was flushed with heparinized saline and clamped with a bulldog clamp. The radial artery was then dissected free and found to be of adequate quality and caliber to support a fistula. Heparin was administered systemically and allowed to circulate for 3 minutes following which the radial artery was clamped proximally and distally. An anterior arteriotomy was created with an 11 blade scalpel and extended with El scissors. An end-to-side anastomosis created with a running 6-0 Prolene suture with excellent technical result, although in some areas the arterial bite had to be slightly larger to avoid calcified plaques in the artery. Prior to tying down the anastomosis, the inflow was released to flush the anastomosis. Flow was established first through the fistula and then through the distal radial artery. Some bleeding was seen at the distal end of the suture line which was easily controlled with a 6-0 Prolene suture. Hemostasis at the site was confirmed, and an excellent thrill was felt in the cephalic vein outflow and an excellent bruit was heard with Doppler as well up to the proximal forearm. There was an excellent Doppler signal in the distal radial artery as well, and a palpable ulnar pulse. Hemostasis at the operative site was again confirmed. The incision was closed with a running 3-0 subcutaneous and running 4-0 subcuticular Monocryl sutures. Dermabond dressings were placed and the patient was taken to the recovery room in good condition. Estimated blood loss was minimal. There were no complications. There were no specimens.
== END 2017-07-28 15:59 | disposition home or self-care (01) | DRG 264 ==
LOC: ERS 01:51 → 2SW 03:33 → OBSVTOIN 03:33 → 2NO 18:03 → ONC 07-27 19:24
PROVIDERS: ADMIT Internal Medicine; ATTEND Internal Medicine
PROC: 031C0ZF Bypass Left Radial Artery to Lower Arm Vein, Open Approach (ICD-10-PCS; principal; 2017-07-23)
PROC: 5A1D70Z Performance of Urinary Filtration, Intermittent, Less than 6 Hours Per Day (ICD-10-PCS; 2017-07-23)
PROC: 02HV33Z Insertion of Infusion Device into Superior Vena Cava, Percutaneous Approach (ICD-10-PCS; 2017-07-23)
PROC: B5181ZA Fluoroscopy of Superior Vena Cava using Low Osmolar Contrast, Guidance (ICD-10-PCS; 2017-07-23)
PROC: 5A1D70Z Performance of Urinary Filtration, Intermittent, Less than 6 Hours Per Day (ICD-10-PCS; 2017-07-25)
PROC: 5A1D70Z Performance of Urinary Filtration, Intermittent, Less than 6 Hours Per Day (ICD-10-PCS; 2017-07-26)
PROC: 5A1D70Z Performance of Urinary Filtration, Intermittent, Less than 6 Hours Per Day (ICD-10-PCS; 2017-07-27)
DX: I13.2 Hypertensive heart and chronic kidney disease with heart failure and with stage 5 chronic kidney disease, or end stage renal disease (principal); N17.9 Acute kidney failure, unspecified; E11.22 Type 2 diabetes mellitus with diabetic chronic kidney disease; D75.81 Myelofibrosis; I24.8 Other forms of acute ischemic heart disease; E66.01 Morbid (severe) obesity due to excess calories; I25.810 Atherosclerosis of coronary artery bypass graft(s) without angina pectoris; I50.43 Acute on chronic combined systolic (congestive) and diastolic (congestive) heart failure; N18.6 End stage renal disease; G45.9 Transient cerebral ischemic attack, unspecified; E11.649 Type 2 diabetes mellitus with hypoglycemia without coma; I42.9 Cardiomyopathy, unspecified; Z95.1 Presence of aortocoronary bypass graft; E78.5 Hyperlipidemia, unspecified; Z79.4 Long term (current) use of insulin; Z79.01 Long term (current) use of anticoagulants; Z68.27 Body mass index [BMI] 27.0-27.9, adult; K21.9 Gastro-esophageal reflux disease without esophagitis; N40.0 Benign prostatic hyperplasia without lower urinary tract symptoms; F41.9 Anxiety disorder, unspecified; F32.9 Major depressive disorder, single episode, unspecified; Z79.82 Long term (current) use of aspirin; E87.5 Hyperkalemia; D63.1 Anemia in chronic kidney disease; I48.0 Paroxysmal atrial fibrillation; E11.65 Type 2 diabetes mellitus with hyperglycemia; Z86.73 Personal history of transient ischemic attack (TIA), and cerebral infarction without residual deficits; I45.10 Unspecified right bundle-branch block
CPT/HCPCS: 36415; 36416; 71010; 74000; 80048; 80053; 81003; 81015; 82550; 82553; 83690; 83735; 83880; 84100; 84484; 85025; 85610; 85730; 86580; 86704; 86706; 86803; 87340; 90471; 90682; 90935; 93005; 93306; 93970; 96374; 96375; A4216; C1752; C1769; G0008; G0257; G0365; G8978-GP-CL; G8979-GP-CJ; G8987-GO-CL; G8988-GO-CK; J1644; J1940; J2001; J2405; J2704; J2765; J3010; Q0162; Q2036